=== PATIENT | female | born 1970 | race Caucasian/White ===

== ENCOUNTER 2017-05-29 11:19 | Emergency (ER) | payer MEDICAID ==
[~2017-05-29] VITALS: Ht 5703.2 cm; Wt 123.1 kg
[~2017-05-29 11:19] MED LIST: BISA10SU60 RC; DOCU-28 PO; IBUP-1985 PO; MAGN296S50 PO; NITR100C6 PO
[2017-05-29 11:21] VITALS: BP 128/87
[2017-05-29 11:44] LABS: CLARITY,URINE CLOUDY (Clear); COLOR,URINE YELLOW (Yellow); GLUCOSE, URINE >=1000 mg/dl (Neg); KETONES,URINE NEGATIVE (Neg); LEUKOCYTE ESTERASE ,URINE TRACE (Neg); NITRITES, URINE POSITIVE (Neg); OCCULT BLOOD,URINE TRACE-INTACT (Neg); PH,URINE 5.5 (4.8-8.0); PROTEIN,URINE NEGATIVE (Neg)
[2017-05-29 11:45] LABS: UA COLLECTION TYPE CLN CATCH MIDSTREAM
[2017-05-29 11:51] LABS: BACTERIA,URINE 2+ /HPF (Neg); SQUAMOUS EPITHELIAL CELL,UR MODERATE /LPF (FEW)
[2017-05-29 11:52] LABS: RBC,URINE 0-2 /HPF (0-2); WBC CLUMPS,URINE MODERATE /HPF (NEGATIVE)
[2017-05-29] MEDS ORDERED: BACDS PO (12:01)
== END 2017-05-29 12:10 | disposition home or self-care (01) ==
LOC: ER 11:19
DX: N39.0 Urinary tract infection, site not specified (principal); G89.29 Other chronic pain; F11.10 Opioid abuse, uncomplicated; Z79.899 Other long term (current) drug therapy
CPT/HCPCS: 81001; 87077; 87088; 87186; 99284

== ENCOUNTER 2017-07-18 09:39 | Outpatient (CLI) | payer MEDICAID ==
[2017-07-18] MEDS ORDERED: BUSP10TA3 (10:05)
[2017-07-18] MEDS ORDERED: AMPH30CA10 (10:05)
[2017-07-18] MEDS ORDERED: TEMA15CA (10:05)
[2017-07-18] MEDS ORDERED: LEVO200T8 (10:05)
[2017-07-18] MEDS ORDERED: HYDR50CA5 (10:05)
[2017-07-18] MEDS ORDERED: DOXE150C (10:05)
[2017-07-18 11:04] LABS: BASOPHILS % (AUTO) 0.5 % (0-1); EOSINOPHILS # (AUTO) 0.2 X10'3 (0-0.9); EOSINOPHILS % (AUTO) 2.8 % (0-6); LYMPHOCYTES # (AUTO) 1.7 X10'3 (1.1-4.8); LYMPHOCYTES % (AUTO) 24.8 % (21-51); MEAN CORPUSCULAR HEMOGLOBIN 27.1 PG (27.0-31.0); MEAN CORPUSCULAR HGB CONC 33.7 % (33.0-36.5); MEAN CORPUSCULAR VOLUME 80.4 FL (78-98); MEAN PLATELET VOLUME 10.1 FL (7.4-10.4); MONOCYTES # (AUTO) 0.5 X10'3 (0-0.9); MONOCYTES % (AUTO) 6.6 % (2-12); NEUTROPHILS # (AUTO) 4.6 X10'3 (1.8-7.7); NEUTROPHILS % (AUTO) 65.3 % (42-75); PRE OP HEMATOCRIT 38.8 % (35.0-45.0); PRE OP HEMOGLOBIN 13.1 g/dL (12.0-16.0); PRE OP PLATELET COUNT 152 X10'3 (140-440); RED BLOOD COUNT 4.82 X10'6 (4.20-5.60); RED CELL DISTRIBUTION WIDTH 14.4 % (11.5-14.5)
[2017-07-18 11:12] LABS: HEMOGLOBIN A1C 10.6 % (4.5-6.2)
[2017-07-18 11:41] LABS: ALBUMIN 3.1 G/DL (3.4-5.0); ALBUMIN/GLOBULIN RATIO 0.6 (1.1-1.5); ALKALINE PHOSPHATASE 214 IU/L (46-116); BLOOD UREA NITROGEN 12 MG/DL (7-18); CALCIUM 9.1 MG/DL (8.5-10.1); CHLORIDE 94 MMOL/L (99-107); CREATININE 1.09 MG/DL (0.40-0.90); PRE OP ALT 58 U/L (30-65); PRE OP ANION GAP 11 (8-16); PRE OP AST 57 U/L (10-37); PRE OP BILIRUB, TOTAL 0.3 MG/DL (0.0-1.0); PRE OP POTASSIUM 3.7 MMOL/L (3.4-5.1); PRE OP SODIUM 131 MMOL/L (135-145); TOTAL CARBON DIOXIDE 26.4 MMOL/L (24-32); TOTAL PROTEIN 8.1 G/DL (6.4-8.2); eGFR 54 ML/MIN
[2017-07-18 11:42] LABS: PRE OP GLUCOSE 354 MG/DL (70-104)
== END 2017-07-18 13:08 | disposition home or self-care (01) ==
LOC: PRE-OP 09:39 → EDSTATUS 07-19 09:45
PROVIDERS: ATTEND Orthopaedic Surgery
DX: Z01.818 Encounter for other preprocedural examination (principal); I51.7 Cardiomegaly; S83.231D Complex tear of medial meniscus, current injury, right knee, subsequent encounter; S83.271D Complex tear of lateral meniscus, current injury, right knee, subsequent encounter; F41.9 Anxiety disorder, unspecified; E03.9 Hypothyroidism, unspecified; E66.01 Morbid (severe) obesity due to excess calories; J44.9 Chronic obstructive pulmonary disease, unspecified; M54.5 Low back pain; M17.12 Unilateral primary osteoarthritis, left knee; G89.4 Chronic pain syndrome; F17.209 Nicotine dependence, unspecified, with unspecified nicotine-induced disorders; X58.XXXD Exposure to other specified factors, subsequent encounter
CPT/HCPCS: 36415; 80053; 83036; 84443; 85025; 93005

== ENCOUNTER 2017-09-13 23:40 | Emergency (ER) | payer MEDICAID ==
[~2017-09-13] VITALS: Ht 172.7 cm; Wt 116.8 kg
[~2017-09-13 23:40] MED LIST changes: +AMPH30CA10; +BUSP10TA3; +DOXE150C; +HYDR50CA5; +LEVO200T8; +TEMA15CA
[2017-09-13 23:44] VITALS: BP 131/68
== END 2017-09-14 01:11 | disposition home or self-care (01) ==
LOC: ER 23:41
DX: S39.012A Strain of muscle, fascia and tendon of lower back, initial encounter (principal); G89.29 Other chronic pain; F11.90 Opioid use, unspecified, uncomplicated; Z79.899 Other long term (current) drug therapy; W01.0XXA Fall on same level from slipping, tripping and stumbling without subsequent striking against object, initial encounter; Y93.89 Activity, other specified; Y92.000 Kitchen of unspecified non-institutional (private) residence as the place of occurrence of the external cause; Y99.8 Other external cause status
CPT/HCPCS: 99284

== ENCOUNTER 2017-12-04 08:26 | Emergency (ER) | payer MEDICAID ==
[~2017-12-04] VITALS: Ht 172.7 cm; Wt 109.1 kg
[2017-12-04] MEDS ORDERED: LORazepam 1 MG tablet PO ONE (08:35)
[2017-12-04] MEDS ORDERED: DOXE150C2 PO (09:21)
[2017-12-04] MEDS ORDERED: DOCU100C41 PO (09:21)
[2017-12-04] MEDS ORDERED: AMPH30TA3 PO (09:21)
[2017-12-04] MEDS ORDERED: METH5TAB PO (09:25)
[2017-12-04] MEDS ORDERED: METH-603 PO (09:25)
[2017-12-04] MEDS ORDERED: LURA40TA3 PO (09:27)
[2017-12-04] MEDS ORDERED: METF500T PO (09:27)
[2017-12-04 09:29] LABS: BASOPHILS % (AUTO) 0.4 % (0-1); EOSINOPHILS # (AUTO) 0.1 X10'3 (0-0.9); EOSINOPHILS % (AUTO) 1.8 % (0-6); HEMATOCRIT 42.2 % (35.0-45.0); HEMOGLOBIN 13.6 g/dl (12.0-16.0); LYMPHOCYTES % (AUTO) 13.2 % (21-51); MEAN CORPUSCULAR HEMOGLOBIN 26.6 PG (27.0-31.0); MEAN CORPUSCULAR HGB CONC 32.2 % (33.0-36.5); MEAN CORPUSCULAR VOLUME 82.4 FL (78-98); MEAN PLATELET VOLUME 10.9 FL (7.4-10.4); MONOCYTES # (AUTO) 0.3 X10'3 (0-0.9); MONOCYTES % (AUTO) 4.7 % (2-12); NEUTROPHILS # (AUTO) 5.9 X10'3 (1.8-7.7); NEUTROPHILS % (AUTO) 79.9 % (42-75); PLATELET COUNT 213 X10'3 (140-440); RED BLOOD COUNT 5.13 X10'6 (4.20-5.60); RED CELL DISTRIBUTION WIDTH 15.6 % (11.5-14.5); WHITE BLOOD COUNT 7.4 X10'3 (4.5-11.0)
[2017-12-04 09:33] LABS: ALANINE AMINOTRANSFERASE 39 U/L (12-78); ALBUMIN 3.4 G/DL (3.4-5.0); ALBUMIN/GLOBULIN RATIO 0.7 (1.1-1.5); ALKALINE PHOSPHATASE 186 IU/L (46-116); ANION GAP 10 (8-16); ASPARTATE AMINO TRANSFERASE 36 U/L (10-37); BILIRUBIN,TOTAL 0.4 MG/DL (0.1-1.0); BLOOD UREA NITROGEN 8 MG/DL (7-18); CALCIUM 8.7 MG/DL (8.5-10.1); CHLORIDE 99 MMOL/L (99-107); GLUCOSE 306 MG/DL (70-104); POTASSIUM 3.9 MMOL/L (3.5-5.1); SODIUM 136 MMOL/L (135-145); TOTAL CARBON DIOXIDE 26.7 MMOL/L (24-32); TOTAL PROTEIN 8.1 G/DL (6.4-8.2); eGFR 60 ML/MIN
[2017-12-04 09:40] LABS: ETHANOL < 0.010 GM/DL (0.0-0.010)
[2017-12-04 10:03] LABS: URINE HCG NEGATIVE (NEG)
[2017-12-04 10:07] LABS: CLARITY,URINE SLIGHTLY CLOUDY (Clear); COLOR,URINE YELLOW (Yellow); GLUCOSE, URINE >=1000 mg/dl (Neg); KETONES,URINE NEGATIVE (Neg); LEUKOCYTE ESTERASE ,URINE SMALL (Neg); NITRITES, URINE POSITIVE (Neg); OCCULT BLOOD,URINE NEGATIVE (Neg); PH,URINE 5.5 (4.8-8.0); PROTEIN,URINE NEGATIVE (Neg)
[2017-12-04 10:10] LABS: UA COLLECTION TYPE NON-SPECIFIED
[2017-12-04 10:16] LABS: BACTERIA,URINE 4+ /HPF (Neg); RBC,URINE NONE SEEN /HPF (0-2); SQUAMOUS EPITHELIAL CELL,UR FEW /LPF (FEW); URINE AMPHETAMINE SCREEN NEGATIVE (Neg); URINE BARBITUATE SCREEN NEGATIVE (Neg); URINE BENZODIAZEPINES SCREEN NEGATIVE (Neg); URINE CANNABINOID SCREEN NEGATIVE (Neg); URINE COCAINE SCREEN NEGATIVE (Neg); URINE METHADONE SCREEN POSITIVE (Neg); URINE OPIATE SCREEN NEGATIVE (Neg); URINE PHENCYCLIDINE SCREEN NEGATIVE (Neg); WBC CLUMPS,URINE FEW /HPF (NEGATIVE); WBC,URINE 20-30 /HPF (0-4)
[2017-12-04] MEDS ORDERED: dextrose ORAL solution 15 GM/59 ML bottle PO PRN (10:30)
[2017-12-04] MEDS ORDERED: glucagon, human recombinant 1mg kit SUBCUT PRN (10:30)
[2017-12-04] MEDS: DEXTROAMPHETAMINE PO SCH (11:00)
[2017-12-04] MEDS: AMPHETAMINE PO SCH (11:00)
[2017-12-04] MEDS: lurasidone 20mg tablet PO SCH (11:30)
[2017-12-04] MEDS: methadone 5mg tablet PO SCH (11:32)
[2017-12-04] MEDS: methadone 10mg tablet PO SCH (11:32)
[2017-12-04] MEDS: docusate sod 100mg capsule PO SCH (11:33)
[2017-12-04] MEDS: sulfamethoxazole/trimethoprim DS (800/160mg) tablet PO SCH ×2 (11:33→20:18)
[2017-12-04] MEDS: metFORMIN 500mg tablet PO SCH ×2 (11:33→17:40)
[2017-12-04] MEDS: doxepin 25mg capsule PO SCH (21:48)
[2017-12-05] MEDS: metFORMIN 500mg tablet PO SCH ×2 (07:48→18:13)
[2017-12-05] MEDS: AMPHETAMINE PO SCH (08:00)
[2017-12-05] MEDS: DEXTROAMPHETAMINE PO SCH (08:00)
[2017-12-05] MEDS: methadone 5mg tablet PO SCH (08:14)
[2017-12-05] MEDS: lurasidone 20mg tablet PO SCH (08:14)
[2017-12-05] MEDS: methadone 10mg tablet PO SCH (08:15)
[2017-12-05] MEDS: sulfamethoxazole/trimethoprim DS (800/160mg) tablet PO SCH ×2 (08:15→21:05)
[2017-12-05] MEDS: docusate sod 100mg capsule PO SCH (08:15)
[2017-12-05] MEDS: lactobacillus rhamnosus 10,000 MMU CELLS/CAPSULE PO SCH (21:05)
[2017-12-05] MEDS: doxepin 25mg capsule PO SCH (21:05)
[2017-12-06 05:57] VITALS: BP 113/75
[2017-12-06] MEDS: AMPHETAMINE PO SCH (08:00)
[2017-12-06] MEDS: DEXTROAMPHETAMINE PO SCH (08:00)
[2017-12-06] MEDS: methadone 5mg tablet PO SCH (08:13)
[2017-12-06] MEDS: methadone 10mg tablet PO SCH (08:13)
[2017-12-06] MEDS: sulfamethoxazole/trimethoprim DS (800/160mg) tablet PO SCH (08:14)
[2017-12-06] MEDS: docusate sod 100mg capsule PO SCH (08:14)
[2017-12-06] MEDS: lurasidone 20mg tablet PO SCH (08:14)
[2017-12-06] MEDS: lactobacillus rhamnosus 10,000 MMU CELLS/CAPSULE PO SCH (08:14)
[2017-12-06] MEDS: metFORMIN 500mg tablet PO SCH (08:14)
[2017-12-06] MEDS ORDERED: NITR100C6 PO (13:59)
== END 2017-12-06 14:16 ==
LOC: ER 08:26
DX: R45.851 Suicidal ideations (principal); F32.9 Major depressive disorder, single episode, unspecified; N39.0 Urinary tract infection, site not specified; E11.9 Type 2 diabetes mellitus without complications; G89.29 Other chronic pain; F41.9 Anxiety disorder, unspecified; Z98.84 Bariatric surgery status; Z79.899 Other long term (current) drug therapy
CPT/HCPCS: 36415; 80053; 80305; 80320; 81001; 81025; 82948; 84443; 85025; 99285

== ENCOUNTER 2018-01-11 16:32 | Emergency (ER) | payer MEDICAID ==
[~2018-01-11] VITALS: Ht 170.2 cm; Wt 109.0 kg
[~2018-01-11 16:32] MED LIST changes: -AMPH30CA10; +ARIP30TA11; +BACDS PO; -BISA10SU60 RC; +BUPR100T7 PO; -BUSP10TA3; +CLON0.1T20 PO; -DOCU-28 PO; +DOCU100C41 PO; +DOL10T PO; -DOXE150C; +DOXE150C2 PO; -HYDR50CA5; -IBUP-1985 PO; -LEVO200T8; -MAGN296S50 PO; +METF500T PO; -NITR100C6 PO; -TEMA15CA
[2018-01-11 17:06] VITALS: BP 122/65
[2018-01-11] MEDS ORDERED: fluconazole 150mg tablet PO ONE (20:20)
[2018-01-11] MEDS ORDERED: CLOT15CR73 TP (20:25)
[2018-01-12] MEDS ORDERED: CLOT15CR73 TOP (12:36)
== END 2018-01-11 20:51 | disposition home or self-care (01) ==
LOC: ER 16:33
DX: B37.3 Candidiasis of vulva and vagina (principal); G89.29 Other chronic pain; F41.9 Anxiety disorder, unspecified; F32.9 Major depressive disorder, single episode, unspecified; F17.200 Nicotine dependence, unspecified, uncomplicated; F11.10 Opioid abuse, uncomplicated; Z59.0 Homelessness; Z86.14 Personal history of Methicillin resistant Staphylococcus aureus infection; Z98.84 Bariatric surgery status
CPT/HCPCS: 99283

== ENCOUNTER 2018-01-14 07:05 | Emergency (ER) | payer MEDICAID ==
[~2018-01-14] VITALS: Ht 170.2 cm; Wt 109.0 kg
[~2018-01-14 07:05] MED LIST changes: +CLOT15CR73 TOP; +CLOT15CR73 TP
[2018-01-14 07:09] VITALS: BP 161/94
== END 2018-01-14 09:10 | disposition home or self-care (01) ==
LOC: ER 07:06
DX: B37.89 Other sites of candidiasis (principal); G89.29 Other chronic pain; Z86.14 Personal history of Methicillin resistant Staphylococcus aureus infection; F11.90 Opioid use, unspecified, uncomplicated; Z98.51 Tubal ligation status; Z79.84 Long term (current) use of oral hypoglycemic drugs; Z79.899 Other long term (current) drug therapy; Z59.0 Homelessness
CPT/HCPCS: 99281

== ENCOUNTER 2018-02-22 09:28 | Emergency (ER) | payer MEDICAID ==
[~2018-02-22] VITALS: Ht 172.7 cm; Wt 106.0 kg
[2018-02-22 09:43] VITALS: BP 120/58
[2018-02-22] MEDS ORDERED: acetaminophen 325mg tablet PO ONE (10:30)
[2018-02-22] MEDS ORDERED: AZIT500T PO (10:48)
== END 2018-02-22 10:59 | disposition home or self-care (01) ==
LOC: ER 09:28
DX: J20.9 Acute bronchitis, unspecified (principal); G89.29 Other chronic pain; F41.9 Anxiety disorder, unspecified; F32.9 Major depressive disorder, single episode, unspecified; R51 Headache; F11.10 Opioid abuse, uncomplicated; Z59.0 Homelessness; Z72.0 Tobacco use; Z98.51 Tubal ligation status; Z86.14 Personal history of Methicillin resistant Staphylococcus aureus infection; Z87.898 Personal history of other specified conditions; Z79.899 Other long term (current) drug therapy
CPT/HCPCS: 71046; 99283

== ENCOUNTER 2018-05-23 01:36 | Emergency (ER) | payer MEDICAID ==
[~2018-05-23] VITALS: Ht 172.7 cm; Wt 72.5 kg
[2018-05-23 01:44] VITALS: BP 133/80
[2018-05-23] MEDS ORDERED: ketorolac trometh inj. 60 MG/2 ML VIAL IM ONE (03:25)
[2018-05-23] MEDS ORDERED: acetaminophen 325mg tablet PO ONE (03:25)
== END 2018-05-23 04:09 | disposition home or self-care (01) ==
LOC: ER 01:36
DX: R07.81 Pleurodynia (principal); G89.29 Other chronic pain; F11.90 Opioid use, unspecified, uncomplicated; Z59.0 Homelessness; Z86.14 Personal history of Methicillin resistant Staphylococcus aureus infection; Z98.51 Tubal ligation status; Z98.890 Other specified postprocedural states; Z79.899 Other long term (current) drug therapy; Y04.0XXA Assault by unarmed brawl or fight, initial encounter; Y93.89 Activity, other specified; Y92.89 Other specified places as the place of occurrence of the external cause; Y99.8 Other external cause status
CPT/HCPCS: 71045; 96372; 99283; J1885

== ENCOUNTER 2018-07-05 12:01 | Emergency (ER) | payer MEDICAID ==
[~2018-07-05] VITALS: Ht 172.7 cm; Wt 72.0 kg
--- NOTE | 2018-07-05 13:04 | NUR ---
PT UNABLE TO VOID FOR UA AT THIS TIME.
[2018-07-05 13:10] LABS: BASOPHILS % (AUTO) 0.3 % (0-1); EOSINOPHILS % (AUTO) 0.1 % (0-6); HEMATOCRIT 33.3 % (35.0-45.0); HEMOGLOBIN 10.8 g/dl (12.0-16.0); LYMPHOCYTES # (AUTO) 1.1 X10'3 (1.1-4.8); MEAN CORPUSCULAR HEMOGLOBIN 22.9 PG (27.0-31.0); MEAN CORPUSCULAR HGB CONC 32.4 g/dL (33.0-36.5); MEAN CORPUSCULAR VOLUME 70.6 FL (78-98); MEAN PLATELET VOLUME 9.4 FL (7.4-10.4); MONOCYTES # (AUTO) 0.5 X10'3 (0-0.9); NEUTROPHILS # (AUTO) 7.1 X10'3 (1.8-7.7); NEUTROPHILS % (AUTO) 80.6 % (42-75); PLATELET COUNT 195 X10'3 (140-440); RED BLOOD COUNT 4.71 X10'6 (4.20-5.60); RED CELL DISTRIBUTION WIDTH 18.5 % (11.5-14.5); WHITE BLOOD COUNT 8.8 X10'3 (4.5-11.0)
[2018-07-05 13:28] LABS: ALANINE AMINOTRANSFERASE 69 U/L (12-78); ALBUMIN 3.2 G/DL (3.4-5.0); ALBUMIN/GLOBULIN RATIO 0.6 (1.1-1.5); ALKALINE PHOSPHATASE 185 IU/L (46-116); ANION GAP 6 (8-16); ASPARTATE AMINO TRANSFERASE 42 U/L (10-37); BILIRUBIN,TOTAL 0.5 MG/DL (0.1-1.0); BLOOD UREA NITROGEN 10 MG/DL (7-18); CALCIUM 8.5 MG/DL (8.5-10.1); CHLORIDE 101 MMOL/L (99-107); CREATININE 0.83 MG/DL (0.40-0.90); GLUCOSE 232 MG/DL (70-104); SODIUM 134 MMOL/L (135-145); TOTAL CARBON DIOXIDE 27.5 MMOL/L (24-32); TOTAL PROTEIN 8.2 G/DL (6.4-8.2); eGFR 74 ML/MIN
[2018-07-05] MEDS ORDERED: potassium chloride 10mEq CAPSULE.SA PO STA (13:35)
[2018-07-05] MEDS ORDERED: potassium Cl 20 mEq SR tablet PO STA (13:48)
[2018-07-05] MEDS ORDERED: CLON-529 PO (14:24)
[2018-07-05 14:38] VITALS: BP 167/88
== END 2018-07-05 14:41 | disposition home or self-care (01) ==
LOC: ER 12:01
DX: F11.20 Opioid dependence, uncomplicated (principal); R07.89 Other chest pain; G89.29 Other chronic pain; Z86.14 Personal history of Methicillin resistant Staphylococcus aureus infection; Z79.84 Long term (current) use of oral hypoglycemic drugs; Z79.899 Other long term (current) drug therapy; Z98.51 Tubal ligation status; Z59.0 Homelessness
CPT/HCPCS: 36415; 80053; 85025; 93005; 99284

== ENCOUNTER 2018-07-06 11:28 | Emergency (ER) | payer MEDICAID ==
[~2018-07-06] VITALS: Ht 172.7 cm; Wt 85.0 kg
[~2018-07-06 11:28] MED LIST changes: +CLON-529 PO
--- NOTE | 2018-07-06 11:49 | NUR ---
Admission Note: Received pt as a walk back from triage as a 1798 after she was brought in for attempting to jump off the [place] [address]. Pt continues to endorse S.I., "I don't want to live like this anymore" Pt has a history of bipolar disorder and reports she has been off her meds for 4-7 days. Pt cooperative with admission.
[2018-07-06 12:32] LABS: URINE HCG NEGATIVE (NEG)
[2018-07-06 12:43] LABS: URINE AMPHETAMINE SCREEN POSITIVE (Neg); URINE BARBITUATE SCREEN NEGATIVE (Neg); URINE BENZODIAZEPINES SCREEN NEGATIVE (Neg); URINE CANNABINOID SCREEN POSITIVE (Neg); URINE COCAINE SCREEN NEGATIVE (Neg); URINE METHADONE SCREEN POSITIVE (Neg); URINE OPIATE SCREEN NEGATIVE (Neg); URINE PHENCYCLIDINE SCREEN NEGATIVE (Neg)
[2018-07-06 13:06] LABS: BASOPHILS % (AUTO) 0.3 % (0-1); EOSINOPHILS % (AUTO) 0 % (0-6); HEMATOCRIT 34.2 % (35.0-45.0); HEMOGLOBIN 10.9 g/dl (12.0-16.0); LYMPHOCYTES # (AUTO) 1.2 X10'3 (1.1-4.8); MEAN CORPUSCULAR HEMOGLOBIN 22.3 PG (27.0-31.0); MEAN CORPUSCULAR HGB CONC 31.9 g/dL (33.0-36.5); MEAN CORPUSCULAR VOLUME 69.9 FL (78-98); MEAN PLATELET VOLUME 10.4 FL (7.4-10.4); MONOCYTES # (AUTO) 0.5 X10'3 (0-0.9); MONOCYTES % (AUTO) 4.6 % (2-12); NEUTROPHILS # (AUTO) 9.4 X10'3 (1.8-7.7); NEUTROPHILS % (AUTO) 84.1 % (42-75); PLATELET COUNT 215 X10'3 (140-440); RED CELL DISTRIBUTION WIDTH 19.2 % (11.5-14.5); WHITE BLOOD COUNT 11.1 X10'3 (4.5-11.0)
[2018-07-06 13:12] LABS: ALANINE AMINOTRANSFERASE 58 U/L (12-78); ALBUMIN 3.3 G/DL (3.4-5.0); ALBUMIN/GLOBULIN RATIO 0.6 (1.1-1.5); ALKALINE PHOSPHATASE 177 IU/L (46-116); ANION GAP 7 (8-16); ASPARTATE AMINO TRANSFERASE 29 U/L (10-37); BILIRUBIN,TOTAL 0.6 MG/DL (0.1-1.0); BLOOD UREA NITROGEN 11 MG/DL (7-18); BUN/CREATININE RATIO 11.7 (6.6-38.0); CALCIUM 9.6 MG/DL (8.5-10.1); CHLORIDE 98 MMOL/L (99-107); CREATININE 0.94 MG/DL (0.40-0.90); ETHANOL < 0.010 GM/DL (0.0-0.010); GLUCOSE 310 MG/DL (70-104); POTASSIUM 3.8 MMOL/L (3.5-5.1); SODIUM 134 MMOL/L (135-145); TOTAL CARBON DIOXIDE 28.6 MMOL/L (24-32); TOTAL PROTEIN 8.7 G/DL (6.4-8.2); eGFR 64 ML/MIN
--- NOTE | 2018-07-06 13:23 | NUR ---
Note undone in EDM - 07/06/18 at 1326 by CALLI Pt discharged at 1323 to self. Pt evaluated by psychiatric provider, Estuardo RASHID who determined pt not to be meeting 5150 criteria. Pt denies S.I. and voices desire to go home. Pt escorted from unit by security.
--- NOTE | 2018-07-06 13:30 | NUR ---
Packet faxed to [facility] tad office
[2018-07-06 13:47] LABS: ANISOCYTOSIS 2+; ELLIPTOCYTES FEW; HYPOCHROMASIA 1+; LARGE PLATELETS FEW; MICROCYTOSIS 2+; PLATELET ESTIMATE NORMAL; SCHISTOCYTES FEW
--- NOTE | 2018-07-06 13:48 | NUR ---
Pt resting quietly in bed, no signs of distress noted at this time. Will cont. to monitor.
--- NOTE | 2018-07-06 15:00 | NUR ---
Pt did awake at one point stating she was having a panic attack. RN went and spoke with her for awhile and then gave her a magazine. No further complaints.
--- NOTE | 2018-07-06 17:00 | NUR ---
Pt restless, tossing and turning in bed c/o anxiety. Pt responds moderately well to reassurrance by staff.
[2018-07-06] MEDS ORDERED: buPROPion 100mg tablet PO SCH (18:00)
[2018-07-06] MEDS ORDERED: hydrOXYzine 25 MG tablet PO PRN (18:05)
--- NOTE | 2018-07-06 19:00 | NUR ---
Pt resting quietly in bed. No complaints at this time.
[2018-07-06] MEDS: cloNIDine 0.1 mg tablet PO SCH (20:24)
[2018-07-06] MEDS ORDERED: aripiprazole 5mg tablet PO SCH (21:00)
[2018-07-06] MEDS ORDERED: doxepin 25mg capsule PO SCH (21:00)
--- NOTE | 2018-07-06 21:00 | NUR ---
Pt sleeping and was awoken to give HS meds. Pt compliant without complaints.
[2018-07-06] MEDS ORDERED: ibuprofen 200mg tablet PO PRN (21:55)
[2018-07-06] MEDS ORDERED: LORazepam 1 MG tablet PO ONE (21:55)
[2018-07-06] MEDS: acetaminophen 325mg tablet PO PRN (22:03)
--- NOTE | 2018-07-06 23:00 | NUR ---
Pt has been restless since pt awoke to take HS medications. Pt c/o pain. PA ordered tylenol and ativan which was given.
--- NOTE | 2018-07-07 01:00 | NUR ---
Pt restless, up and down. Pt currently seems to have settled and is resting calmly with eyes closed and breathing regular without distress.
--- NOTE | 2018-07-07 03:00 | NUR ---
Pt continues to sleep without distress.
--- NOTE | 2018-07-07 05:00 | NUR ---
Pt remains sleeping peacefully without complaints.
[2018-07-07 06:00] VITALS: BP 145/88
[2018-07-07] MEDS ORDERED: buPROPion SR 150mg tablet PO SCH (08:00)
[2018-07-07] MEDS ORDERED: METF500T PO (08:18)
[2018-07-07] MEDS: cloNIDine 0.1 mg tablet PO SCH (08:35)
[2018-07-07] MEDS: acetaminophen 325mg tablet PO PRN (08:37)
[2018-07-07] MEDS ORDERED: metFORMIN 500mg tablet PO SCH ×2 (08:38→20:00)
--- NOTE | 2018-07-07 09:00 | NUR ---
called [facility] and asked them to fax over the information for the pt's methadone doses.
[2018-07-07] MEDS ORDERED: METH-603 PO (11:12)
--- NOTE | 2018-07-07 12:21 | NUR ---
notified Rojelio TORRES that pt going up to behavioral health and needs d/c paperwork.
--- NOTE | 2018-07-07 12:22 | NUR ---
Gave Report to [facility].
[2018-07-07] MEDS ORDERED: DOXE150C PO (13:07)
[2018-07-07] MEDS ORDERED: ARIP30TA7 PO (13:07)
[2018-07-07] MEDS ORDERED: BUPR150T8 PO (13:07)
[2018-07-07] MEDS ORDERED: CLON-529 PO (13:07)
--- NOTE | 2018-07-07 13:12 | NUR ---
[facility] at bedside.
[2018-07-08] MEDS ORDERED: methadone 10mg tablet PO SCH (08:00)
== END 2018-07-07 13:23 ==
LOC: ER 11:28
DX: F32.9 Major depressive disorder, single episode, unspecified (principal); F41.9 Anxiety disorder, unspecified; G89.29 Other chronic pain; Z86.19 Personal history of other infectious and parasitic diseases; F17.200 Nicotine dependence, unspecified, uncomplicated; F11.90 Opioid use, unspecified, uncomplicated; Z98.51 Tubal ligation status; Z98.84 Bariatric surgery status; Z59.0 Homelessness; Z79.84 Long term (current) use of oral hypoglycemic drugs; Z79.899 Other long term (current) drug therapy
CPT/HCPCS: 36415; 80053; 80305; 80320; 81025; 82948; 85025; 99285; Q0177

== ENCOUNTER 2018-07-07 12:11 | Inpatient (IN) | payer MEDICAID ==
[~2018-07-07] VITALS: Ht 172.7 cm; Wt 85.9 kg
[~2018-07-07 12:11] MED LIST changes: +METH-603 PO
[2018-07-07] MEDS ORDERED: mag hydrox/Alum hydrox/simeth 30ml oral suspension PO PRN (13:00)
[2018-07-07] MEDS ORDERED: magnesium hydroxide 30ml (MOM) UD suspension PO PRN (13:00)
[2018-07-07] MEDS ORDERED: tuberculin, purif. prot. deriv. 5 units/0.1ml ID ONE (13:00)
[2018-07-07] MEDS ORDERED: acetaminophen 325mg tablet PO PRN ×2 (13:00)
[2018-07-07] MEDS ORDERED: loperamide 2mg capsule PO PRN (13:00)
[2018-07-07] MEDS ORDERED: BUPR150T8 PO (13:07)
[2018-07-07] MEDS ORDERED: ARIP30TA7 PO (13:07)
[2018-07-07] MEDS ORDERED: DOXE150C PO (13:07)
[2018-07-07] MEDS ORDERED: CLON-529 PO (13:07)
[2018-07-07 13:54] VITALS: BP 111/59
--- NOTE | 2018-07-07 13:58 | NUR ---
Admit note: Pt admitted by RACHID Allen for Dr Delgado at 1330 for depression. Pt on a 5150 for suicidal ideation. Pt reports increasing depression and states "I have nothing to live for". Pt had plan to jump off the [place] bridge. Pt has history DMII, overdoses, bipolar, anxiety, schizophrenia. Pt cooperative with admission process. Med rec completed. Pt may have stopped taking her medications a week ago. Pt complains of a lot of family drama at home.
[2018-07-07] MEDS ORDERED: methadone 10mg tablet PO SCH (14:50)
[2018-07-07] MEDS: methadone 10mg tablet PO SCH (15:22)
[2018-07-07] MEDS: methadone 5mg tablet PO SCH (15:23)
--- NOTE | 2018-07-07 17:08 | NUR ---
Nursing Progress Note Legal hold: 5150 Client on involuntary status for DTS. Report received from TAMAR Deng with use of SBAR. Why are they here: Patient has come into the ER everyday for the past three days. States she had a plan to jump off [address] bridge 08/06. Patient now reports that she feels suicidal, but has no plan. Patient has been off her medications for approximately 5 days now. Patient's tox screen was positive for amphetamines (which patient states that she takes Adderall and this tests positive), methadone, THC. Patient has past history of substance abuse. Pt. is homeless. Patient has chronic pain, DM, gastric bypass. Hep C, hx of MRSA. Assessment What has happened this shift: Patient came to floor and immediately started requesting methadone, that was not administered in ER. Told TAMAR Fox that she is going to stay here until she is ready to leave. Has been living under [facility]. Skin check complete and has no skin abnormalities. Left lower lung is decreased, otherwise clear. Patient showered after assessments complete. S/I, H/I: Patient states SI with no plan. A/VH: Denies. Sleep:Awake this afternoon. ADL's: Independent. Group attendance: Admitted after groups. Were meds taken: Yes. Any med S/E: None. Mental Status Exam Appearance: Disheveled woman with mid length hair. Eye contact: Minimal. Behavior: Med seeking (withdrawing from methadone), tired. Speech: Slightly slurred, due to patient being edentulous. Mood: Depressed. Affect: Blunted, slightly agitated. Thought process: Linear. Thought Content: Getting methadone. Cognition: A&O x 4 Insight: Poor. Judgment: Poor. Interventions PRN's used: None. Therapeutic interventions: Assessments to determine severity of symptoms, therapeutic listening, medication education/administration/monitoring. Q15" safety checks. Restraints/seclusion/emergency medication: None. Justification of Continued Inpatient Treatment: Patient is suicidal and needs medication stabilization and to be in a safe and therapeutic environment to reduce risk to patient and rehospitalization.
[2018-07-07 20:00] VITALS: BP 109/70
[2018-07-07] MEDS: cloNIDine 0.1 mg tablet PO SCH (20:00)
[2018-07-07] MEDS: metFORMIN 500mg tablet PO SCH (21:12)
[2018-07-07] MEDS: aripiprazole 5mg tablet PO SCH (21:32)
[2018-07-07] MEDS: doxepin 25mg capsule PO SCH (21:34)
--- NOTE | 2018-07-08 00:31 | NUR ---
Nursing Progress Note Legal hold: 5150 Client on involuntary status for DTS. Report received from TAMAR Deng with use of SBAR. Why are they here: Patient has come into the ER everyday for the past three days. States she had a plan to jump off [employer] bridge 08/06. Patient now reports that she feels suicidal, but has no plan. Patient has been off her medications for approximately 5 days now. Patient's tox screen was positive for amphetamines (which patient states that she takes Adderall and this tests positive), methadone, THC. Patient has past history of substance abuse. Pt. is homeless. Patient has chronic pain, DM, gastric bypass. Hep C, hx of MRSA. Assessment What has happened this shift: Pt sleeping in bed at change of shift. Pt attended HS snack. She is observed to nod off frequently; pt states it is because of the methadone. She confirms SI but has no plan "I wouldn't know how to kill myself here". Pt states that she feels "powerless, worthless" and that she wants to get her kids help and herself help with assistance while she is here. Presents as depressed. Pt falls asleep frequently during 1:1. Pt is medication compliant and cooperative. S/I, H/I: +SI with no plan, Denies HI A/VH: Denies Sleep: See Sleep Hour Charting ADL's: Independent Group attendance: Y - HS Snack Were meds taken: Y - Catapres held due to not meeting BP parameters. Any med S/E: None reported, Methadone dose may need adjustment due to sleepiness Mental Status Exam Appearance: Disheveled hair, wearing unit green scrubs, nonskid socks, and personal sweatshirt Eye contact: Intermittent Behavior: Sleeping, Attended snack Speech: Slightly Slurred, Low volume Mood: Depressed Affect: Blunted Thought process: Linear Thought Content: Getting help while here Cognition: A&Ox4 Insight: Poor to Fair Judgment: Poor Interventions PRN's used: None Therapeutic interventions: Assessments to determine severity of symptoms, therapeutic listening, medication education/administration/monitoring. Q15" safety checks. Restraints/seclusion/emergency medication: None. Justification of Continued Inpatient Treatment: Patient is suicidal and needs medication stabilization and to be in a safe and therapeutic environment to reduce risk to patient and rehospitalization.
[2018-07-08 07:00] VITALS: BP 103/60
[2018-07-08] MEDS ORDERED: methadone 10mg tablet PO SCH (08:00)
[2018-07-08] MEDS: buPROPion SR 150mg tablet PO SCH (08:55)
[2018-07-08] MEDS: metFORMIN 500mg tablet PO SCH ×2 (08:55→20:29)
[2018-07-08] MEDS: methadone 5mg tablet PO SCH (08:55)
[2018-07-08] MEDS: cloNIDine 0.1 mg tablet PO SCH ×2 (08:55→20:00)
[2018-07-08] MEDS: methadone 10mg tablet PO SCH (08:55)
[2018-07-08 09:16] LABS: CHOL/HDL RATIO 2.6 (0.00-4.99); CHOLESTEROL 100 MG/DL (0-200); HDL CHOLESTEROL 38 MG/DL (35-60); LDL CHOLESTEROL 52 MG/DL (50-100); TRIGLYCERIDES 71 MG/DL (20-135)
--- NOTE | 2018-07-08 11:33 | NUR ---
Nutrition consult: "pt hx maribel-en-y and edentulous." Hx DM A1C 8.1. Pt admit w/ SI s/p SA from [employer]. Pt is placed on mechanical soft ground meats diet for chewing issues and not appropriate for any diet reinforcement at this time w/ current DX. PO 100% meals meeting needs. Addendum: 07/08/18 at [address] Amended: Links added.
[2018-07-08] MEDS: hydrOXYzine 25 MG tablet PO PRN (15:02)
[2018-07-08] MEDS: hydrOXYzine 25 MG tablet PO SCH (17:31)
--- NOTE | 2018-07-08 17:59 | NUR ---
Nursing Progress Note Legal hold: 5150 Client on involuntary status for DTS. Report received from Jamila Oliver RN with use of SBAR. Why are they here: Patient has come into the ER everyday for the past three days. States she had a plan to jump off [address] 08/06. Patient now reports that she feels suicidal, but has no plan. Patient has been off her medications for approximately 5 days now. Patient's tox screen was positive for amphetamines (which patient states that she takes Adderall and this tests positive), methadone, THC. Patient has past history of substance abuse. Pt. is homeless. Patient has chronic pain, DM, gastric bypass. Hep C, hx of MRSA. Assessment What has happened this shift: Pt sleeping in bed at change of shift. She awakens just before breakfast and joins other in the group room to eat. She takes her medications after breakfast without any issue and then lays back down to bed. She takes her morning medications without issue. She requests to find out information regarding placement of her daughter, CPS number is provided to patient. Patient is able to find out that her daughter is safe and feels comforted by this. Patient reports that she is not feeling suicidal and that she would like to focus on her wellness during her stay here so that she can be healthy. Patient does report feeling anxious twice during the day and Atarax is administered as prescribed. S/I, H/I: denies A/VH: Denies Sleep: 7.25hrs NOC and rested during the day ADL's: Independent Group attendance: yes Were meds taken: yes Any med S/E: None reported, Methadone dose may need adjustment due to sleepiness Mental Status Exam Appearance: Disheveled hair, changed into clothing from closed Eye contact: direct Behavior: friendly, cooperative, sleepy Speech: soft tone, normal rate/rhythm Mood: sad but hopeful Affect: restricted Thought process: Linear Thought Content: focused on wellness Cognition: A&Ox4 Insight: Fair Judgment: Poor Interventions PRN's used: atarax for anxiety Therapeutic interventions: Provided therapeutic assessment, maintained safe therapeutic milieu, provided active listening with positive feedback, medication education as needed, monitored for change in behavior and needed intervention. Q 15 min checks. Restraints/seclusion/emergency medication: None. Justification of Continued Inpatient Treatment: Patient recently suicidal, therapeutic support and medication management needed to provide stabilization, and prevent decompensation decreasing risk to patient for readmittance to in-patient unit.
[2018-07-08 20:00] VITALS: BP 103/61
[2018-07-08] MEDS: aripiprazole 5mg tablet PO SCH (20:30)
[2018-07-08] MEDS: doxepin 25mg capsule PO SCH (20:30)
[2018-07-08] MEDS ORDERED: MESSAGE TO PHARMACY PO ONE (22:10)
[2018-07-08] MEDS ORDERED: glucagon, human recombinant 1mg kit SUBCUT PRN (22:10)
[2018-07-08] MEDS ORDERED: dextrose 50%-water 50ml dispensing syringe IV PRN ×2 (22:10)
[2018-07-08] MEDS ORDERED: dextrose ORAL solution 15 GM/59 ML bottle PO PRN ×2 (22:10)
--- NOTE | 2018-07-08 22:19 | NUR ---
Nursing Progress Note Legal hold: 5150 Client on involuntary status for DTS. Report received from TAMAR Deng with use of SBAR. Why are they here: Patient has come into the ER everyday for the past three days. States she had a plan to jump off [employer] bridge 08/06. Patient now reports that she feels suicidal, but has no plan. Patient has been off her medications for approximately 5 days now. Patient's tox screen was positive for amphetamines (which patient states that she takes Adderall and this tests positive), methadone, THC. Patient has past history of substance abuse. Pt. is homeless. Patient has chronic pain, DM, gastric bypass. Hep C, hx of MRSA. Assessment What has happened this shift: Pt resting in room at change of shift. She got up to attend HS snack and watched TV with peers before returning to her room. During 1:1, she stated she doesn't feel SI necessarily, but she feels inbetween wanting to live and . "I feel blah". She did state she is feeling more positive about getting better while she is here, and she feels better about her kids knowing there is some sort of "plan through CPS". Pt less sedated this evening but still falls asleep during conversation. Catapres held due to pt not meeting BP parameters, otherwise pt compliant with medications. S/I, H/I: Denies HI, states "Don't want to live, Don't want to " regarding SI A/VH: Denies Sleep: See Sleep Hour Charting; pt sleeps throughout the night ADL's: Independent Group attendance: Y - HS Snack Were meds taken: Y Any med S/E: None reported, Methadone dose may need adjustment due to sleepiness Mental Status Exam Appearance: Disheveled hair, wearing unit green scrubs and nonskid socks Eye contact: Direct Behavior: Cooperative, sleepy Speech: soft tone, normal rate/rhythm Mood: Sad but "more positive" Affect: Restricted Thought process: Linear Thought Content: Getting better Cognition: A&Ox4 Insight: Fair Judgment: Poor Interventions PRN's used: None Therapeutic interventions: Provided therapeutic assessment, maintained safe therapeutic milieu, provided active listening with positive feedback, medication education as needed, monitored for change in behavior and needed intervention. Q 15 min checks. Restraints/seclusion/emergency medication: None. Justification of Continued Inpatient Treatment: Patient recently suicidal, therapeutic support and medication management needed to provide stabilization, and prevent decompensation decreasing risk to patient for readmittance to in-patient unit.
[2018-07-09] MEDS: metFORMIN 500mg tablet PO SCH ×2 (08:00→20:53)
[2018-07-09] MEDS ORDERED: ferrous sulfate ER tablet 140 MG TABLET.ER PO SCH (08:00)
[2018-07-09 08:08] VITALS: BP 109/67
[2018-07-09] MEDS: cloNIDine 0.1 mg tablet PO SCH ×2 (08:17→20:48)
[2018-07-09] MEDS: ferrous sulfate 325mg tablet PO SCH ×3 (08:17→17:30)
[2018-07-09] MEDS: buPROPion SR 150mg tablet PO SCH (08:18)
[2018-07-09] MEDS: methadone 10mg tablet PO SCH (08:18)
[2018-07-09] MEDS: insulin Lispro (HumaLOG) vial - multi-dose SQ SCH ×3 (08:32→18:12)
[2018-07-09] MEDS: hydrOXYzine 25 MG tablet PO SCH ×2 (08:35→17:30)
[2018-07-09 09:24] LABS: FERRITIN 22 NG/ML (8-252)
[2018-07-09 09:29] LABS: % IRON SATURATION 4 % (11-46); IRON 16 UG/DL (49-151); TOTAL IRON BINDING CAPACITY 444 UG/DL (259-388)
[2018-07-09] MEDS: LORazepam 1 MG tablet PO PRN ×2 (12:33→19:53)
--- NOTE | 2018-07-09 16:59 | NUR ---
Art Therapy Group (continued): Patient attended group for the entire session,in between leaving the room and returning several times. Patient sat apart from the group,mostly ruminating on a situation involving her son she was worried about. Forty-five minutes into group, pt. choose to draw her ID emotions "Worried v.s.Peaceful. She was able to ID and express her emotions on paper, which she shared briefly in the group process. She found it difficult to concentrate or complete her journaling or access any peaceful thoughts to balance out her anxious thoughts and feelings. She did not interact with her peers. * For a complete overview, please refer to the group note. Nicole Monreal MA, [facility] #[id number] [facility] Art Therapist Addendum: 07/09/18 at 1702 by Nicole Monreal SS Amended: Links added.
--- NOTE | 2018-07-09 17:47 | NUR ---
Nursing Progress Note Legal hold: 5150 Client on involuntary status for DTS. Report received from TAMAR Ivan with use of SBAR. Why are they here: Patient has come into the ER everyday for the past three days. States she had a plan to jump off [address] 08/06. Patient now reports that she feels suicidal, but has no plan. Patient has been off her medications for approximately 5 days now. Patient's tox screen was positive for amphetamines (which patient states that she takes Adderall and this tests positive), methadone, THC. Patient has past history of substance abuse. Pt. is homeless. Patient has chronic pain, DM, gastric bypass. Hep C, hx of MRSA. Assessment What has happened this shift: Pt resting in room at change of shift. She is anxious and tearful regarding her son. She was able to briefly contact him and reports he is suicidal and she is worried. She was unable to get his location before he hung up and was unable to contact him again to follow up. She reached out ot [employer] and a LEISA was initated for him, which was somewhat relieving for her. She was tearful throughout the day because of this. She did attend group and eat all snacks offered. She is aware of her methadone being decreased today as well as insulin protocol being initiated. She uses Atarax PRN in the AM d/t anxiety and stress. In the afternoon she requests to have Ativan d/t continued anxiety and stress. Pt later became upset and vomited up her lunch d/t roommate being verbally aggressive with her. Later made up with roommate and reports she no longer feels threatened by her. S/I, H/I: Denies HI, SI not reported A/VH: Denies Sleep: 8.25hrs per NOC ADL's: Independent Group attendance: Y Were meds taken: Y Any med S/E: None reported Mental Status Exam Appearance: Disheveled hair, wearing street clothes, changed into scrubs Eye contact: Direct Behavior: Cooperative, stressed Speech: soft tone, normal rate/rhythm Mood: Sad, anxious, stressed Affect: Restricted Thought process: Linear Thought Content: focused on her son Cognition: A&Ox4 Insight: Fair Judgment: Poor Interventions PRN's used: Atarax in AM & Ativan in afternoon Therapeutic interventions: Provided therapeutic assessment, maintained safe therapeutic milieu, provided active listening with positive feedback, medication education as needed, monitored for change in behavior and needed intervention. Q 15 min checks. Restraints/seclusion/emergency medication: None. Justification of Continued Inpatient Treatment: Patient recently suicidal, therapeutic support and medication management needed to provide stabilization, and prevent decompensation decreasing risk to patient for readmittance to in-patient unit.
[2018-07-09] MEDS: hydrOXYzine 25 MG tablet PO PRN (19:10)
[2018-07-09 20:00] VITALS: BP 109/63
--- NOTE | 2018-07-09 20:15 | NUR ---
Pts minor son arrived at the unit during visiting hours and I explained to him that he was unable to come on the unit due to his age, he became upset and stated he didn't know what to do and that he was on the streets and needed to talk to his Mom. Pt was allowed to talk to son at the door and she told her son that she had contacted CPS and instructed him to go to the ER. He was with another 18 year old female (unknown relation) and left at that time. Shortly after the son was again at the door of the unit, this time he became belligerent and was calling Juany coffman as she had answered the phone when he rang the tijerina. Juany and that was present on the unit went to talk to the son, he continued to be agitated and hung up the phone so hard it had fallen apart. Security redirected him and had him come sit in the lobby and I contacted CPS to follow up on mothers phone call. I spoke to the social welfare research worker remote operations producer and she advised me she was sending [employer] to forklift picker the minor. Per security to patients son left with a family member prior to [employer] coming.
[2018-07-09] MEDS: doxepin 25mg capsule PO SCH (20:48)
[2018-07-09] MEDS: aripiprazole 5mg tablet PO SCH (20:49)
[2018-07-09] MEDS ORDERED: insulin glargine (Lantus) pen - multi-dose SQ SCH (21:00)
--- NOTE | 2018-07-10 00:03 | NUR ---
Nursing Progress Note Legal hold: 5150 Client on involuntary status for DTS. Report received from TAMAR Deng with use of SBAR. Why are they here: Patient has come into the ER everyday for the past three days. States she had a plan to jump off [place] [address] 08/06. Patient now reports that she feels suicidal, but has no plan. Patient has been off her medications for approximately 5 days now. Patient's tox screen was positive for amphetamines (which patient states that she takes Adderall and this tests positive), methadone, THC. Patient has past history of substance abuse. Pt. is homeless. Patient has chronic pain, DM, gastric bypass. Hep C, hx of MRSA. Assessment What has happened this shift: One to one with the patient to assess severity of depressive symptoms and self harm risk. She stated that she does feel she is getting better here with "some bumps in the road" She reports her concentration and focus is poor. The patient's son came to see her but he is a minor and when told an arrangement would have to be made for him to come onto the unit he left and was sitting in the lobby. Security staff and the remote sensing technician became involved at that point and CPS was contacted. The patient was glad that he was OK but very anxious about how he is doing. She requested and received PRN ativan. S/I, H/I: Denies HI, states SI "a little bit" A/VH: Denies Sleep: ADL's: Independent Group attendance: No PM group Were meds taken: Y Any med S/E: None reported Mental Status : alert and oriented Appearance: Disheveled hair, wearing green scrubs Eye contact: Direct Behavior: Cooperative, pacing in the alba Speech: normal rate/rhythm, Coherent, spontaneous Mood:anxious, stressed Affect: Restricted Thought process: Linear Thought Content: focused on her son Cognition: A&Ox4 Insight: Fair Judgment: Poor Interventions PRN's used: PRN ativan. Therapeutic interventions: Provided therapeutic assessment, maintained safe therapeutic milieu, provided active listening with positive feedback, medication education as needed, monitored for change in behavior and needed intervention. Q 15 min checks. Restraints/seclusion/emergency medication: None. Justification of Continued Inpatient Treatment: The patient continues to endorse suicidal thinking.
[2018-07-10 07:23] VITALS: BP 102/55
[2018-07-10] MEDS: ferrous sulfate 325mg tablet PO SCH ×3 (07:27→16:53)
[2018-07-10] MEDS: cloNIDine 0.1 mg tablet PO SCH ×2 (07:27→20:40)
[2018-07-10] MEDS: buPROPion SR 150mg tablet PO SCH (07:27)
[2018-07-10] MEDS: metFORMIN 500mg tablet PO SCH ×2 (07:27→20:43)
[2018-07-10] MEDS: hydrOXYzine 25 MG tablet PO PRN (07:28)
[2018-07-10] MEDS ORDERED: methadone 5mg tablet PO SCH (08:00)
[2018-07-10] MEDS ORDERED: methadone 10mg tablet PO SCH (08:00)
[2018-07-10] MEDS: insulin Lispro (HumaLOG) vial - multi-dose SQ SCH ×3 (09:30→18:01)
[2018-07-10] MEDS: hydrOXYzine 25 MG tablet PO SCH ×3 (12:40→20:40)
[2018-07-10] MEDS: LORazepam 1 MG tablet PO PRN (14:14)
--- NOTE | 2018-07-10 15:38 | NUR ---
1:1 COLLATERAL DEBBY made TC to [facility] to learn who is assigned to pt's CPS Worker. DEBBY learned assigned SW is Garima Linda, Senior Channel Process Plant Operator at [phone]. DEBBY left message requesting a return contact. SUNITA Green Addendum: 07/10/18 at 1756 by Jyothi Lance SS Addition to note: Pt reports she wants to stay at [facility] to get better, rather than attend CPS Intermediate Hearing on 07/11/2018. DEBBY will assist pt in learning when Jurisdiction Hearing is for services and return of children. SUNITA Green
--- NOTE | 2018-07-10 16:38 | NUR ---
Nursing Progress Note Legal hold: voluntary Client on involuntary status for DTS. Report received from TAMAR Ivan with use of SBAR. Why are they here: Patient has come into the ER everyday for the past three days. States she had a plan to jump off [employer] bridge 08/06. Patient now reports that she feels suicidal, but has no plan. Patient has been off her medications for approximately 5 days now. Patient's tox screen was positive for amphetamines (which patient states that she takes Adderall and this tests positive), methadone, THC. Patient has past history of substance abuse. Pt. is homeless. Patient has chronic pain, DM, gastric bypass. Hep C, hx of MRSA. Assessment What has happened this shift: Patient is up and about at change of shift. She reports that she is anxious because she does not know what happened with her son after he left here. During request for anxiety medication she, in a nonchalant manner, says just kill me, whatever. She takes her medication without any issue. She joins others for breakfast in the group room and after returns to her room. She changes the bedding on her bed and talks about her concerns with her son. She organizes her shelves and puts everything in its place. She attends group and after makes phone calls to CPS. She appears anxious throughout the day, she states that she is tired but cannot sleep. She is necessarily apologetic, saying sorry many times. She is assured that she has no reason to apologize. S/I, H/I: passive suicidal ideation, no intent A/VH: Denies Sleep: 6.5hrs NOC ADL's: Independent, showered today Group attendance: yes Were meds taken: Y Any med S/E: None reported Mental Status : alert and oriented Appearance: Disheveled hair, wearing green scrubs, showered later in the afternoon Eye contact: Direct Behavior: Cooperative, anxious Speech: normal rate/rhythm, Mood: Anxious, stressed Affect: Restricted Thought process: Linear Thought Content: focused on her children, her check, and court tomorrow Cognition: A&Ox4 Insight: Fair Judgment: Poor Interventions PRN's used: PRN ativan. Therapeutic interventions: Provided therapeutic assessment, maintained safe therapeutic milieu, provided active listening with positive feedback, medication education as needed, monitored for change in behavior and needed intervention. Q 15 min checks. Restraints/seclusion/emergency medication: None. Justification of Continued Inpatient Treatment: Patient recently suicidal, therapeutic support and medication management needed to provide stabilization, and prevent decompensation decreasing risk to patient for readmittance to in-patient unit.
[2018-07-10 20:00] VITALS: BP 105/67
[2018-07-10] MEDS: doxepin 25mg capsule PO SCH (20:41)
[2018-07-10] MEDS: aripiprazole 5mg tablet PO SCH (20:42)
--- NOTE | 2018-07-10 21:35 | NUR ---
Order obtained to D/C diabetic protocol as patient is type II diabetic and does not use insulin on the outside.
[2018-07-11] MEDS: LORazepam 1 MG tablet PO PRN (00:33)
--- NOTE | 2018-07-11 01:14 | NUR ---
Nursing Progress Note Legal hold: 5250 Client on involuntary status for DTS. Report received from TAMAR Recio with use of SBAR. Why are they here: Patient has come into the ER everyday for the past three days. States she had a plan to jump off [address] bridge 08/06. Patient now reports that she feels suicidal, but has no plan. Patient has been off her medications for approximately 5 days now. Patient's tox screen was positive for amphetamines (which patient states that she takes Adderall and this tests positive), methadone, THC. Patient has past history of substance abuse. Pt. is homeless. Patient has chronic pain, DM, gastric bypass. Hep C, hx of MRSA. Assessment Patient in her room at the change of shift. She comes and requests a snack which is given to her. She agrees to a 1:1 assessment at her bedside. She tearfully speaks of how hopeless she feels and states I tried to jump off the [place]. She says she feels she had no other choices than to leave her children and come to get help. She endorses feeling of depression and anxiety. She states she feels its best for her to not attend the CPS hearing and that she stay and get treatment. She denies SI/HI, AH, but states I thought I saw a balloon in my room earlier. but I thinks its because she is tired. She is cooperative for all her evening medications. She does present in the middle of the night stating she has been up and she feels anxious, snack and Ativan is provided at this time. S/I, H/I: Denies SI/HI A/VH: Denies AH, VH- states she saw a balloon in her room earlier today Sleep: See sleep assessment ADL's: Independent Group attendance: No PM group Were meds taken: Y Any med S/E: None reported Mental Status : Alert and oriented Appearance: Disheveled hair, wearing street clothes Eye contact: Direct Behavior: Cooperative, pacing in the alba Speech: Normal rate/rhythm, Coherent, spontaneous Mood: Anxious, hopeless Affect: Restricted Thought process: Linear Thought Content: Focused on treatment Cognition: A&Ox4 Insight: Fair Judgment: Poor Interventions PRN's used: Ativan Therapeutic interventions: Provided therapeutic assessment, 1:1 assessment, maintained safe therapeutic milieu, provided active listening with positive feedback, medication education as needed, monitored for change in behavior and needed intervention. Q 15 min checks. Restraints/seclusion/emergency medication: None. Justification of Continued Inpatient Treatment: Continued therapeutic support and medication management needed to provide stabilization, prevent decompensation, decreasing risk to patient and readmittance.
[2018-07-11] MEDS: hydrOXYzine 25 MG tablet PO SCH (04:27)
[2018-07-11] MEDS: cloNIDine 0.1 mg tablet PO SCH ×2 (07:40→20:34)
[2018-07-11 07:44] VITALS: BP 102/60
[2018-07-11] MEDS ORDERED: methadone 5mg tablet PO SCH (08:00)
[2018-07-11] MEDS ORDERED: methadone 10mg tablet PO SCH (08:00)
[2018-07-11] MEDS: ferrous sulfate 325mg tablet PO SCH ×3 (08:04→18:19)
[2018-07-11] MEDS: buPROPion SR 150mg tablet PO SCH (08:04)
[2018-07-11] MEDS: metFORMIN 500mg tablet PO SCH ×2 (08:04→20:35)
[2018-07-11] MEDS: methadone 10mg tablet PO SCH (08:04)
[2018-07-11] MEDS: hydrOXYzine 25 MG tablet PO PRN ×2 (09:59→16:21)
--- NOTE | 2018-07-11 15:45 | NUR ---
RN consult: Pt requesting chopped foods on tray since that's how she eats at home; dietary notified. Addendum: 07/11/18 at [address] Amended: Links added.
[2018-07-11 16:07] LABS: OCCULT BLOOD STOOL NEGATIVE (Neg)
--- NOTE | 2018-07-11 17:43 | NUR ---
Nursing Progress Note Legal hold: Voluntary Client on voluntary status for DTS. Report received from MONIQUE Ivan with use of KEITH. Elen hy are they here: Patient has come into the ER everyday for the past three days. States she had a plan to jump off [address] bridge 08/06. Patient now reports that she feels suicidal, but has no plan. Patient has been off her medications for approximately 5 days now. Patient's tox screen was positive for amphetamines (which patient states that she takes Adderall and this tests positive), methadone, THC. Patient has past history of substance abuse. Pt. is homeless. Patient has chronic pain, DM, gastric bypass. Hep C, hx of MRSA. Assessment Patient was sitting up in her room at the change of shift. She was compliant with medication administration. Catipress was held due to SBP out of medication parameters. Pt reports anxiety. She said she is concerned about her daughter going to court today. She reports she is sad, depressed, and lonely. She denied SI and A H. When asked about visual hallucinations, she said that last night she saw the contreras, acosta, and thought she saw her grandson. During the day, she attempted to make phone calls to resolve multiple issues regarding her family and possessions. She became upset when the phone was taken away to allow other pts access to the phone. 1mg Ativan order was discontinued due to concern about administering Methadone and Ativan together and possible ENTRY LEVEL ACCOUNTANT affects. She was given Atarax x2 for anxiety. S/I, H/I: Denies SI/HI A/VH: Denies AH, VH- states she thought she saw the contreras, acosta and her grandson in her room during the night Sleep: Napped ADL's: Independent Group attendance: Attended morning and afternoon groups Were meds taken: Yes Any med S/E: None reported or noted Mental Status Exam Appearance: Hair appears disheveled, clothes clean Eye contact: Direct Behavior: Crying, Frequently asking for anxiety medications Speech: Normal rate and rhythm Mood: Depressed Affect: Anxious Thought process: Perseverative Thought Content: Concern about problems with family and possessions Cognition: A&Ox4 Insight: Poor Judgment: Poor Interventions PRN's used: Atarax, Tylenol Therapeutic interventions: Provided therapeutic assessment, 1:1 assessment, maintained safe therapeutic milieu, provided active listening with positive feedback, medication education as needed, monitored for change in behavior and needed intervention. Q 15 min checks. Restraints/seclusion/emergency medication: None. Justification of Continued Inpatient Treatment: Continued therapeutic support and medication management needed to provide stabilization, prevent decompensation, decreasing risk to patient and readmittance.
[2018-07-11] MEDS: LORazepam 0.5 MG tablet PO PRN (19:09)
[2018-07-11 20:03] VITALS: BP 122/68
[2018-07-11] MEDS: aripiprazole 5mg tablet PO SCH (20:35)
[2018-07-11] MEDS: doxepin 25mg capsule PO SCH (20:37)
--- NOTE | 2018-07-11 23:57 | NUR ---
Nursing Progress Note Legal hold: 5250 Client on involuntary status for DTS. Report received from TAMAR Recio with use of SBAR. Why are they here: Patient has come into the ER everyday for the past three days. States she had a plan to jump off [employer] bridge 08/06. Patient now reports that she feels suicidal, but has no plan. Patient has been off her medications for approximately 5 days now. Patient's tox screen was positive for amphetamines (which patient states that she takes Adderall and this tests positive), methadone, THC. Patient has past history of substance abuse. Pt. is homeless. Patient has chronic pain, DM, gastric bypass. Hep C, hx of MRSA. Assessment Patient in her room at the change of shift. She states she is really anxious and request a PRN at this time. 0.5 mg of Ativan is administered. 1:1 assessment completed at bedside. She denies SI/HI stating "N, I am sad, tired, I feel hopeless" She goes on to express her worry about her son still being on the street and then states Her anxiety is over "My kids, my son is still on the street, but I do think that he is going to try and drain my accounts." She say's he has his card and she is trying to get call the bank to cancel her cards. Patient is tearful this evening and keeps to herself mostly except for asking for medications or food. She is compliant with all her evening medications and goes to bed independently. S/I, H/I: Denies SI/HI A/VH: Denies AH/VH Sleep: Currently sleeping, See sleep assessment ADL's: Independent Group attendance: No PM group Were meds taken: Y Any med S/E: None reported Mental Status : Alert and oriented Appearance: Disheveled hair, wearing street clothes Eye contact: Direct Behavior: Cooperative, crying at times Speech: Normal rate/rhythm, Coherent, spontaneous Mood: Anxious, hopeless Affect: Restricted Thought process: Linear Thought Content: Focused on financial issues and children Cognition: A&Ox4 Insight: Fair Judgment: Poor Interventions PRN's used: Ativan Therapeutic interventions: Provided therapeutic assessment, 1:1 assessment, maintained safe therapeutic milieu, provided active listening with positive feedback, medication education as needed, monitored for change in behavior and needed intervention. Q 15 min checks. Restraints/seclusion/emergency medication: None. Justification of Continued Inpatient Treatment: Continued therapeutic support and medication management needed to provide stabilization, prevent decompensation, decreasing risk to patient and readmittance.
[2018-07-12] MEDS: hydrOXYzine 25 MG tablet PO PRN ×3 (05:27→19:54)
[2018-07-12] MEDS: metFORMIN 500mg tablet PO SCH ×2 (07:55→20:49)
[2018-07-12] MEDS: buPROPion 100mg tablet PO SCH (07:55)
[2018-07-12] MEDS: ferrous sulfate 325mg tablet PO SCH ×3 (07:55→18:13)
[2018-07-12] MEDS: cloNIDine 0.1 mg tablet PO SCH ×2 (07:55→20:00)
[2018-07-12] MEDS: methadone 10mg tablet PO SCH (07:55)
[2018-07-12 08:00] VITALS: BP 120/66
[2018-07-12] MEDS: LORazepam 0.5 MG tablet PO PRN ×2 (08:54→18:46)
--- NOTE | 2018-07-12 17:09 | NUR ---
Nursing Progress Note Legal hold: Voluntary Client on voluntary status for DTS. Report received from MONIQUE Tello with use of SBAR. Why are they here: Patient has come into the ER everyday for the past three days. States she had a plan to jump off [address] 08/06. Patient now reports that she feels suicidal, but has no plan. Patient has been off her medications for approximately 5 days now. Patient's tox screen was positive for amphetamines (which patient states that she takes Adderall and this tests positive), methadone, THC. Patient has past history of substance abuse. Pt. is homeless. Patient has chronic pain, DM, gastric bypass. Hep C, hx of MRSA. Assessment Patient up and visible on the unit today patient med seeking most of the day for anxiety. Patient affect and mood someone labile: at times patient has flat affect and appears fine and other times patient is crying and appearing overwhelmed. Patient perseverating today on food and require redirection at times to not eat too much and not eat too much food that was not good for diabetes. Patient excepting of redirection by staff. Patient also changed her clothes three or four times today. Patient did not attend groups. Will continue to reassure patient as needed. S/I, H/I: Denies SI/HI A/VH: Denies Sleep: Napped ADL's: Independent Group attendance: no Were meds taken: Yes Any med S/E: None reported or noted Mental Status Exam Appearance: Hair appears disheveled, clothes clean Eye contact: Direct Behavior: Crying, Frequently asking for anxiety medications Speech: Normal rate and rhythm Mood: Depressed Affect: Anxious Thought process: Perseverative Thought Content: Concern about problems with family and possessions Cognition: A&Ox4 Insight: Poor Judgment: Poor Interventions PRN's used: Atarax, ativan Therapeutic interventions: Provided therapeutic assessment, 1:1 assessment, maintained safe therapeutic milieu, provided active listening with positive feedback, medication education as needed, monitored for change in behavior and needed intervention. Q 15 min checks. Restraints/seclusion/emergency medication: None. Justification of Continued Inpatient Treatment: Continued therapeutic support and medication management needed to provide stabilization, prevent decompensation, decreasing risk to patient and readmittance.
[2018-07-12 20:00] VITALS: BP 97/53
[2018-07-12] MEDS: doxepin 25mg capsule PO SCH (20:49)
[2018-07-12] MEDS: aripiprazole 5mg tablet PO SCH (20:49)
--- NOTE | 2018-07-13 00:21 | NUR ---
Nursing Progress Note Legal hold: voluntary Client on voluntary status for DTS. Report received from TAMAR Moseley with use of SBAR. Why are they here: Patient has come into the ER everyday for the past three days. States she had a plan to jump off [employer] [address] 08/06. Patient now reports that she feels suicidal, but has no plan. Patient has been off her medications for approximately 5 days now. Patient's tox screen was positive for amphetamines (which patient states that she takes Adderall and this tests positive), methadone, THC. Patient has past history of substance abuse. Pt. is homeless. Patient has chronic pain, DM, gastric bypass. Hep C, hx of MRSA. Assessment Patient is laying in bed on assessment. She states she threw up after her dinner from an upset stomach. She said laying down has helped and she is drinking water. She requests applesauce, which she is given. Pt denies suicidal ideation at this time but admits she is still feeling depressed. She is compliant with all her evening medications. She reports no vomiting after medications and falls asleep. S/I, H/I: Denies SI/HI A/VH: Denies AH/VH Sleep: See sleep assessment notation ADL's: Independent Group attendance: No PM group Were meds taken: Yes Any med S/E: None reported Mental Status : A&Ox4 Appearance: Disheveled hair Eye contact: fair Behavior: lays in bed all of shift. Speech: Normal rate/rhythm, Coherent Mood: sleepy, ready for bed Affect: flat Thought process: Linear Thought Content: Focused on going to bed Cognition: A&Ox4 Insight: Fair Judgment: Poor Interventions PRN's used: none Therapeutic interventions: Provided therapeutic assessment, 1:1 assessment, maintained safe therapeutic milieu, provided active listening with positive feedback, medication education as needed, monitored for change in behavior and needed intervention. Q 15 min checks. Restraints/seclusion/emergency medication: None. Justification of Continued Inpatient Treatment: Continued therapeutic support and medication management needed to provide stabilization, prevent decompensation, decreasing risk to patient and readmittance.
[2018-07-13] MEDS: hydrOXYzine 25 MG tablet PO PRN ×3 (06:00→19:43)
[2018-07-13] MEDS: buPROPion 100mg tablet PO SCH (07:44)
[2018-07-13] MEDS: metFORMIN 500mg tablet PO SCH ×2 (07:44→20:28)
[2018-07-13] MEDS: cloNIDine 0.1 mg tablet PO SCH ×2 (07:44→20:00)
[2018-07-13] MEDS: ferrous sulfate 325mg tablet PO SCH ×3 (07:44→17:12)
[2018-07-13] MEDS: methadone 10mg tablet PO SCH (07:44)
[2018-07-13 08:00] VITALS: BP_SYST 127; BP_SYST 97; BP_DIAS 71; BP_DIAS 73
[2018-07-13] MEDS: LORazepam 0.5 MG tablet PO PRN ×2 (09:23→17:12)
--- NOTE | 2018-07-13 14:28 | NUR ---
Nursing Progress Note Legal hold: Voluntary Client on voluntary status for DTS. Report received from MONIQUE Tello with use of SBAR. Why are they here: Patient has come into the ER everyday for the past three days. States she had a plan to jump off [address] 08/06. Patient now reports that she feels suicidal, but has no plan. Patient has been off her medications for approximately 5 days now. Patient's tox screen was positive for amphetamines (which patient states that she takes Adderall and this tests positive), methadone, THC. Patient has past history of substance abuse. Pt. is homeless. Patient has chronic pain, DM, gastric bypass. Hep C, hx of MRSA. Assessment Received pt awake and walking in the hallway after shift report. She immediately asked if she could get a medication for anxiety. Took AM meds and ate brkfst, but felt nausea and vomited after brkfst, She reports this is due to eating too much secondary to Hx of bypass surgery. AM BS was 153. Pt received prns for anxiety with modest effect. Pt had a phone call with daughter this AM which disturbed her and she cried for a while in bed. Pt able to voice how two of her children have treated her poorly and is able to see them in foster care as a good thing, I have a new life on my own. She accepts ideas to reduce anxiety and redirection well. She is labile but calm and cooperative. S/I, H/I: Denies SI/HI A/VH: Denies Sleep: Napped ADL's: Independent Group attendance: Yes Were meds taken: Yes Any med S/E: None reported or noted Mental Status Exam Appearance: Hair appears disheveled, clothes clean Eye contact: Direct Behavior: Crying, Frequently asking for anxiety medications Speech: Normal rate and rhythm Mood: Depressed Affect: Anxious Thought process: Focused on being wronged by children Thought Content: Concern about problems with family and possessions Cognition: A&Ox4 Insight: Poor Judgment: Poor Interventions PRN's used: Atarax, ativan Therapeutic interventions: Provided therapeutic assessment, 1:1 assessment, maintained safe therapeutic milieu, provided active listening with positive feedback, medication education as needed, monitored for change in behavior and needed intervention. Q 15 min checks. Restraints/seclusion/emergency medication: None. Justification of Continued Inpatient Treatment: Continued therapeutic support and medication management needed to provide stabilization, prevent decompensation, decreasing risk to patient and readmittance.
[2018-07-13 20:00] VITALS: BP 107/53
[2018-07-13] MEDS: aripiprazole 5mg tablet PO SCH (20:28)
[2018-07-13] MEDS: doxepin 25mg capsule PO SCH (20:30)
--- NOTE | 2018-07-13 23:20 | NUR ---
Nursing Progress Note Legal hold: voluntary Client on voluntary status for DTS. Report received from TAMAR Warner with use of SBAR. Why are they here: Patient has come into the ER everyday for the past three days. States she had a plan to jump off [employer] bridge 08/06. Patient now reports that she feels suicidal, but has no plan. Patient has been off her medications for approximately 5 days now. Patient's tox screen was positive for amphetamines (which patient states that she takes Adderall and this tests positive), methadone, THC. Patient has past history of substance abuse. Pt. is homeless. Patient has chronic pain, DM, gastric bypass. Hep C, hx of MRSA. Assessment Patient is laying in bed at shift change. She states that she is glad her children got into foster care into "good homes" and this "takes a weight off her shoulders. She says that her daughter is very self centered and she was originally suicidal because "I got a hotel room for me and my daughter and she went out with friends and wouldn't bring me my phone, so I freaked out and went to jump off the [place] bridge and then they brought me in here." "If she just would have brought me my phone we could have gone to the [place] the next day and I could have gotten dosed." Pt is medication compliant and request her PRN atarax. S/I, H/I: Denies SI/HI A/VH: Denies AH/VH Sleep: See sleep assessment notation ADL's: Independent Group attendance: No PM group Were meds taken: Yes Any med S/E: None reported Mental Status : A&Ox4 Appearance: Disheveled hair Eye contact: fair Behavior: visible on the unit Speech: Normal rate/rhythm, Coherent Mood:upset to relieved Affect: flat Thought process: Linear Thought Content: relieved her children are in foster care. Cognition: A&Ox4 Insight: Fair Judgment: Poor Interventions PRN's used: Atarax Therapeutic interventions: Provided therapeutic assessment, 1:1 assessment, maintained safe therapeutic milieu, provided active listening with positive feedback, medication education as needed, monitored for change in behavior and needed intervention. Q 15 min checks. Restraints/seclusion/emergency medication: None. Justification of Continued Inpatient Treatment: Continued therapeutic support and medication management needed to provide stabilization, prevent decompensation, decreasing risk to patient and readmittance.
[2018-07-14] MEDS: hydrOXYzine 25 MG tablet PO PRN ×3 (04:02→17:03)
[2018-07-14] MEDS: cloNIDine 0.1 mg tablet PO SCH ×2 (07:10→20:00)
[2018-07-14] MEDS: LORazepam 0.5 MG tablet PO PRN ×2 (07:10→20:09)
[2018-07-14] MEDS: methadone 10mg tablet PO SCH (07:10)
[2018-07-14] MEDS: ferrous sulfate 325mg tablet PO SCH ×3 (07:10→16:34)
[2018-07-14] MEDS ORDERED: buPROPion 100mg tablet PO SCH (08:00)
[2018-07-14] MEDS: metFORMIN 500mg tablet PO SCH ×2 (08:06→20:06)
[2018-07-14 08:14] VITALS: BP 101/63
--- NOTE | 2018-07-14 09:46 | NUR ---
Initial: Pt admit w/ major depression remains 11/21 per MD note. PO 75-100% carb controlled meals meeting needs. LBM 07/13. DM ed remains deferred r/t DX. No nutrition concerns at this time. Addendum: 07/14/18 at [address] Amended: Links added.
--- NOTE | 2018-07-14 12:32 | NUR ---
Nursing Progress Note Legal hold: voluntary Client on voluntary status for DTS. Report received from TAMAR Pastrana with use of SBAR. Why are they here: Patient has come into the ER everyday for the past three days. States she had a plan to jump off [address] [employer] [address] 08/06. Patient now reports that she feels suicidal, but has no plan. Patient has been off her medications for approximately 5 days now. Patient's tox screen was positive for amphetamines (which patient states that she takes Adderall and this tests positive), methadone, THC. Patient has past history of substance abuse. Pt. is homeless. Patient has chronic pain, DM, gastric bypass. Hep C, hx of MRSA. Assessment Client is awake at shift change asking for a shower. She showered and took all medications as prescribed. Client is friendly and social today. Her blood sugar was 151. Client is talkative and stays in the group room conversing with other clients and staff. Her mood has been stable today. Her affect is restrictive. She has not been crying or speaking about her children today. She reports the medications are working well and has not experienced side effects. She asked for PRN medications including Atarax and Ativan. S/I, H/I: Passive SI and depression A/VH: Denies AH/VH Sleep: 6.25 hours ADL's: Independent showered today Group attendance: No group today. Did socialize in group room Were meds taken: Yes Any med S/E: None reported Mental Status : A&Ox4 Appearance: Clean, groomed, disheveled Eye contact: good Behavior: visible on the unit, sociable, pleasant, cooperative Speech: Normal rate/rhythm, coherent Mood: depressed Affect: constricted Thought process: Linear Thought Content: No AH or VH. Client was very hungry today and sleepy. Cognition: A&Ox4 Insight: Fair Judgment: Poor Interventions PRN's used: Atarax, Ativan Therapeutic interventions: Provided therapeutic assessment, 1:1 assessment, maintained safe therapeutic milieu, provided active listening with positive feedback, medication education as needed, monitored for change in behavior and needed intervention. Q 15 min checks. Restraints/seclusion/emergency medication: None. Justification of Continued Inpatient Treatment: Continued therapeutic support and medication management needed to provide stabilization, prevent decompensation, decreasing risk to patient and readmittance.
[2018-07-14 20:00] VITALS: BP 94/50
[2018-07-14] MEDS: doxepin 25mg capsule PO SCH (20:07)
[2018-07-14] MEDS: aripiprazole 5mg tablet PO SCH (20:09)
--- NOTE | 2018-07-14 22:47 | NUR ---
Nursing Progress Note Legal hold: voluntary Client on voluntary status for DTS. Report received from TAMAR Pereira with use of SBAR. Why are they here: Patient has come into the ER everyday for the past three days. States she had a plan to jump off [place] [address] 08/06. Patient now reports that she feels suicidal, but has no plan. Patient has been off her medications for approximately 5 days now. Patient's tox screen was positive for amphetamines (which patient states that she takes Adderall and this tests positive), methadone, THC. Patient has past history of substance abuse. Pt. is homeless. Patient has chronic pain, DM, gastric bypass. Hep C, hx of MRSA. Assessment Patient is visible on the unit and in group room socializing with peers watching TV. Pt makes direct eye contact and smiles occasionally. She reports feeling anxious and takes a PRN Ativan at [facility]. She fell asleep with no issue. S/I, H/I: Denies SI/HI A/VH: Denies AH/VH Sleep: See sleep assessment notation ADL's: Independent Group attendance: No PM group Were meds taken: Yes Any med S/E: None reported Mental Status : A&Ox4 Appearance: Disheveled hair Eye contact: fair Behavior: lays in bed all of shift. Speech: Normal rate/rhythm, Coherent Mood: anxious Affect: bland Thought process: Linear Thought Content: feeling anxious Cognition: A&Ox4 Insight: Fair Judgment: Poor Interventions PRN's used: none Therapeutic interventions: Provided therapeutic assessment, 1:1 assessment, maintained safe therapeutic milieu, provided active listening with positive feedback, medication education as needed, monitored for change in behavior and needed intervention. Q 15 min checks. Restraints/seclusion/emergency medication: None. Justification of Continued Inpatient Treatment: Continued therapeutic support and medication management needed to provide stabilization, prevent decompensation, decreasing risk to patient and readmittance.
[2018-07-15] MEDS: hydrOXYzine 25 MG tablet PO PRN ×3 (02:34→18:59)
[2018-07-15] MEDS: buPROPion SR 150mg tablet PO SCH ×2 (07:51→20:29)
[2018-07-15] MEDS: metFORMIN 500mg tablet PO SCH ×2 (07:51→20:29)
[2018-07-15] MEDS: cloNIDine 0.1 mg tablet PO SCH ×2 (07:51→20:30)
[2018-07-15] MEDS: methadone 10mg tablet PO SCH (07:52)
[2018-07-15 08:00] VITALS: BP 113/70
[2018-07-15] MEDS: ferrous sulfate 325mg tablet PO SCH ×3 (08:12→17:52)
[2018-07-15] MEDS: LORazepam 0.5 MG tablet PO PRN (09:30)
[2018-07-15] MEDS: simethicone 80mg chew tab PO PRN (14:50)
--- NOTE | 2018-07-15 17:13 | NUR ---
Nursing Progress Note Legal hold: voluntary Client on voluntary status for DTS. Report received from TAMAR Pastrana with use of SBAR. Why are they here: Patient has come into the ER everyday for the past three days. States she had a plan to jump off [employer] [place] 08/06. Patient now reports that she feels suicidal, but has no plan. Patient has been off her medications for approximately 5 days now. Patient's tox screen was positive for amphetamines (which patient states that she takes Adderall and this tests positive), methadone, THC. Patient has past history of substance abuse. Pt. is homeless. Patient has chronic pain, DM, gastric bypass. Hep C, hx of MRSA. Assessment Patient up and visible on the unit. Patient dressed appropriately with decent hygiene. Patient continues to complain of anxiety at times and requested Ativan and Atarax each at different times throughout the day. Patient also requested nicotine gum which she has not been using and she was agreeable to not being placed on nicotine replacement therapy as she has been off nicotine for over a week. Pt. denies suicidal thoughts and denies a/v alba. Pt did attend groups and interacting with select peers and staff. S/I, H/I: Passive SI and depression A/VH: Denies AH/VH Sleep: periodically resting on bed, but, no napping today ADL's: Independent showered today Group attendance: yes Were meds taken: Yes Any med S/E: None reported Mental Status : A&Ox4 Appearance: Clean, groomed, disheveled Eye contact: good Behavior: visible on the unit, sociable, pleasant, cooperative Speech: Normal rate/rhythm, coherent Mood: depressed Affect: constricted Thought process: Linear Thought Content: No AH or VH. Client was very hungry today and sleepy. Cognition: A&Ox4 Insight: Fair Judgment: Poor Interventions PRN's used: Atarax, Ativan Therapeutic interventions: Provided therapeutic assessment, 1:1 assessment, maintained safe therapeutic milieu, provided active listening with positive feedback, medication education as needed, monitored for change in behavior and needed intervention. Q 15 min checks. Restraints/seclusion/emergency medication: None. Justification of Continued Inpatient Treatment: Continued therapeutic support and medication management needed to provide stabilization, prevent decompensation, decreasing risk to patient and readmittance.
[2018-07-15] MEDS: doxepin 25mg capsule PO SCH (20:29)
[2018-07-15] MEDS: aripiprazole 5mg tablet PO SCH (20:30)
[2018-07-15 20:39] VITALS: BP 107/77
[2018-07-15] MEDS ORDERED: simethicone 80mg chew tab PO SCH (21:00)
--- NOTE | 2018-07-15 23:56 | NUR ---
Nursing Progress Note Legal hold: voluntary Client on voluntary status for DTS. Report received from TAMAR Warner with use of SBAR. Why are they here: Patient has come into the ER everyday for the past three days. States she had a plan to jump off [employer] bridge 08/06. Patient now reports that she feels suicidal, but has no plan. Patient has been off her medications for approximately 5 days now. Patient's tox screen was positive for amphetamines (which patient states that she takes Adderall and this tests positive), methadone, THC. Patient has past history of substance abuse. Pt. is homeless. Patient has chronic pain, DM, gastric bypass. Hep C, hx of MRSA. Assessment Patient is visible on the unit and socializing with peers in the community room. She appears to be more animated today and smiles occasionally. Pt is medication compliant and cooperative with 1:1 assessment. She states that she feels that she is ready to be discharged, "except I am not sure what to do about my methadone, maybe they can keep me here until I am all the way tapered off." S/I, H/I: Denies SI/HI A/VH: Denies AH/VH Sleep: See sleep assessment notation ADL's: Independent Group attendance: No PM group Were meds taken: Yes Any med S/E: None reported Mental Status : A&Ox4 Appearance: Disheveled hair Eye contact: fair Behavior: visible on the unit Speech: Normal rate/rhythm, Coherent Mood:upbeat Affect: improving Thought process: Linear Thought Content: relieved her children are in foster care. Cognition: A&Ox4 Insight: Fair Judgment: Poor Interventions PRN's used: Atarax Therapeutic interventions: Provided therapeutic assessment, 1:1 assessment, maintained safe therapeutic milieu, provided active listening with positive feedback, medication education as needed, monitored for change in behavior and needed intervention. Q 15 min checks. Restraints/seclusion/emergency medication: None. Justification of Continued Inpatient Treatment: Continued therapeutic support and medication management needed to provide stabilization, prevent decompensation, decreasing risk to patient and readmittance.
[2018-07-16] MEDS: LORazepam 0.5 MG tablet PO PRN (02:23)
[2018-07-16] MEDS ORDERED: pantoprazole 40mg Tablet.DR PO SCH ×2 (07:30)
[2018-07-16] MEDS: ferrous sulfate 325mg tablet PO SCH ×2 (07:54→12:37)
[2018-07-16] MEDS: metFORMIN 500mg tablet PO SCH (07:54)
[2018-07-16] MEDS: buPROPion SR 150mg tablet PO SCH (07:54)
[2018-07-16] MEDS: cloNIDine 0.1 mg tablet PO SCH (07:54)
[2018-07-16 07:58] VITALS: BP 118/68
[2018-07-16] MEDS ORDERED: methadone 10mg tablet PO SCH ×2 (08:00)
[2018-07-16] MEDS ORDERED: linagliptin 5mg tablet PO SCH (08:00)
[2018-07-16] MEDS ORDERED: LINA5TAB4 PO (09:33)
[2018-07-16] MEDS ORDERED: BUPR-84 PO (09:33)
[2018-07-16] MEDS ORDERED: ARIP30TA7 PO (09:33)
[2018-07-16] MEDS ORDERED: METF500T PO (09:33)
[2018-07-16] MEDS ORDERED: DOXE150C PO (09:33)
[2018-07-16] MEDS ORDERED: HYDR-3686 PO (09:33)
[2018-07-16] MEDS ORDERED: FER325T PO (09:33)
[2018-07-16] MEDS ORDERED: PANT40TA4 PO (09:33)
[2018-07-16] MEDS ORDERED: CLON0.1T20 PO (09:33)
[2018-07-16] MEDS: hydrOXYzine 25 MG tablet PO PRN (10:01)
[2018-07-16] MEDS: simethicone 80mg chew tab PO PRN (10:01)
--- NOTE | 2018-07-16 14:22 | NUR ---
Nursing Discharge Note Pt discharged at 1355 accompanied by [facility] [employer] truck driver, to take her to the [facility]. Pt left in no acute physical or emotional distress, and not needing nicotine replacement. Pt in pleasant mood with mild restlessness about wanting to leave. She denies SI and has been improving since admission. Pt's valuables were inventoried by [employer], and returned to her. She understands and has been given copies of follow-up plans for medical and mental health needs.
== END 2018-07-16 13:15 | disposition short-term general hospital (02) | DRG 751 ==
LOC: ADULT MH 12:11
PROVIDERS: ADMIT Psychiatry & Neurology Psychiatry; ATTEND Psychiatry & Neurology Psychiatry
DX: F33.3 Major depressive disorder, recurrent, severe with psychotic symptoms (principal); E11.40 Type 2 diabetes mellitus with diabetic neuropathy, unspecified; R45.851 Suicidal ideations; F11.20 Opioid dependence, uncomplicated; D50.9 Iron deficiency anemia, unspecified; F12.90 Cannabis use, unspecified, uncomplicated; B19.20 Unspecified viral hepatitis C without hepatic coma; G89.29 Other chronic pain; M25.559 Pain in unspecified hip; F17.210 Nicotine dependence, cigarettes, uncomplicated; M54.5 Low back pain; F34.1 Dysthymic disorder; F15.10 Other stimulant abuse, uncomplicated; R91.1 Solitary pulmonary nodule; R10.13 Epigastric pain; F41.9 Anxiety disorder, unspecified; G47.00 Insomnia, unspecified; I10 Essential (primary) hypertension; Z59.0 Homelessness; Z79.84 Long term (current) use of oral hypoglycemic drugs; Z79.899 Other long term (current) drug therapy; Z81.8 Family history of other mental and behavioral disorders; Z82.49 Family history of ischemic heart disease and other diseases of the circulatory system; Z83.3 Family history of diabetes mellitus; Z86.14 Personal history of Methicillin resistant Staphylococcus aureus infection; Z87.11 Personal history of peptic ulcer disease; Z98.84 Bariatric surgery status; Z98.51 Tubal ligation status; Z87.440 Personal history of urinary (tract) infections; Z71.6 Tobacco abuse counseling; Z90.49 Acquired absence of other specified parts of digestive tract
CPT/HCPCS: 36415; 80061; 82272; 82728; 82948; 83036; 83540; 83550; 87070; J1815; Q0177

== ENCOUNTER 2018-08-25 16:17 | Emergency (ER) | payer MEDICAID ==
[~2018-08-25] VITALS: Ht 172.7 cm; Wt 85.9 kg
[~2018-08-25 16:17] MED LIST changes: -ARIP30TA11; +ARIP30TA7 PO; -BACDS PO; -BUPR100T7 PO; +BUPR150T8 PO; -CLON0.1T20 PO; -CLOT15CR73 TOP; -CLOT15CR73 TP; -DOCU100C41 PO; -DOL10T PO; +DOXE150C PO; -DOXE150C2 PO; +HYDR50TA65 PO; -METH-603 PO; +PANT40TA4 PO; +TEMA15CA PO
[2018-08-25 16:57] LABS: CLARITY,URINE CLOUDY (Clear); COLOR,URINE STRAW (Yellow); GLUCOSE, URINE >=1000 mg/dl (Neg); KETONES,URINE NEGATIVE (Neg); LEUKOCYTE ESTERASE ,URINE SMALL (Neg); NITRITES, URINE POSITIVE (Neg); OCCULT BLOOD,URINE NEGATIVE (Neg); PROTEIN,URINE NEGATIVE (Neg)
[2018-08-25 17:02] LABS: UA COLLECTION TYPE CLN CATCH MIDSTREAM
[2018-08-25 17:04] LABS: BACTERIA,URINE 4+ /HPF (Neg); MUCUS STRANDS NONE SEEN /LPF (Neg); RBC,URINE NONE SEEN /HPF (0-2); SQUAMOUS EPITHELIAL CELL,UR MODERATE /LPF (FEW)
[2018-08-25] MEDS ORDERED: clotrimazole 1% vaginal cream 45gm VG STA (17:26)
[2018-08-25] MEDS ORDERED: phenazopyridine 100mg tablet PO ONE (17:30)
[2018-08-25] MEDS ORDERED: acetaminophen 325mg tablet PO ONE (17:30)
[2018-08-25] MEDS ORDERED: FLUC150T5 PO (17:33)
[2018-08-25 17:53] VITALS: BP 142/76
== END 2018-08-25 17:55 | disposition home or self-care (01) ==
LOC: ER 16:17
DX: N89.8 Other specified noninflammatory disorders of vagina (principal); R10.2 Pelvic and perineal pain; R30.0 Dysuria; M54.5 Low back pain; R10.9 Unspecified abdominal pain; E11.9 Type 2 diabetes mellitus without complications; G89.29 Other chronic pain; F41.9 Anxiety disorder, unspecified; F32.9 Major depressive disorder, single episode, unspecified; F11.90 Opioid use, unspecified, uncomplicated; Z86.14 Personal history of Methicillin resistant Staphylococcus aureus infection; Z98.51 Tubal ligation status; Z98.84 Bariatric surgery status; Z59.0 Homelessness; Z79.84 Long term (current) use of oral hypoglycemic drugs; Z79.899 Other long term (current) drug therapy
CPT/HCPCS: 81001; 87077; 87088; 87186; 99284

== ENCOUNTER 2018-10-28 18:03 | Emergency (ER) | payer MEDICAID ==
[~2018-10-28] VITALS: Ht 172.7 cm; Wt 90.9 kg
[~2018-10-28 18:03] MED LIST changes: +FLUC150T5 PO
[2018-10-28 18:41] LABS: BASOPHILS # (AUTO) 0.1 X10'3 (0-0.2); BASOPHILS % (AUTO) 0.8 % (0-1); EOSINOPHILS # (AUTO) 0.1 X10'3 (0-0.9); EOSINOPHILS % (AUTO) 0.9 % (0-6); HEMATOCRIT 30.9 % (35.0-45.0); HEMOGLOBIN 9.5 g/dl (12.0-16.0); LYMPHOCYTES # (AUTO) 1.9 X10'3 (1.1-4.8); LYMPHOCYTES % (AUTO) 21.8 % (21-51); MEAN CORPUSCULAR HEMOGLOBIN 20.2 PG (27.0-31.0); MEAN CORPUSCULAR HGB CONC 30.6 g/dL (33.0-36.5); MEAN CORPUSCULAR VOLUME 66.1 FL (78-98); MEAN PLATELET VOLUME 9.5 FL (7.4-10.4); MONOCYTES # (AUTO) 0.5 X10'3 (0-0.9); MONOCYTES % (AUTO) 5.4 % (2-12); NEUTROPHILS # (AUTO) 6.1 X10'3 (1.8-7.7); NEUTROPHILS % (AUTO) 71.1 % (42-75); PLATELET COUNT 215 X10'3 (140-440); RED BLOOD COUNT 4.67 X10'6 (4.20-5.60); RED CELL DISTRIBUTION WIDTH 22.6 % (11.5-14.5); WHITE BLOOD COUNT 8.6 X10'3 (4.5-11.0)
[2018-10-28 18:42] LABS: CLARITY,URINE SLIGHTLY CLOUDY (Clear); COLOR,URINE YELLOW (Yellow); GLUCOSE, URINE >=1000 mg/dl (Neg); KETONES,URINE NEGATIVE (Neg); LEUKOCYTE ESTERASE ,URINE NEGATIVE (Neg); NITRITES, URINE POSITIVE (Neg); OCCULT BLOOD,URINE NEGATIVE (Neg); PH,URINE 5.5 (4.8-8.0); PROTEIN,URINE NEGATIVE (Neg); UROBILINOGEN,URINE 0.2 E.U/dL (0.2-1.0)
[2018-10-28 18:43] LABS: URINE HCG NEGATIVE (NEG)
[2018-10-28 18:47] LABS: UA COLLECTION TYPE CLN CATCH MIDSTREAM
[2018-10-28 18:57] LABS: ALANINE AMINOTRANSFERASE 24 U/L (12-78); ALBUMIN 3.3 G/DL (3.4-5.0); ALBUMIN/GLOBULIN RATIO 0.7 (1.1-1.5); ALKALINE PHOSPHATASE 124 IU/L (46-116); ANION GAP 11 (8-16); ASPARTATE AMINO TRANSFERASE 21 U/L (10-37); BILIRUBIN,TOTAL 0.3 MG/DL (0.1-1.0); BLOOD UREA NITROGEN 15 MG/DL (7-18); BUN/CREATININE RATIO 14.3 (6.6-38.0); CHLORIDE 100 MMOL/L (99-107); CREATININE 1.05 MG/DL (0.40-0.90); SODIUM 135 MMOL/L (135-145); TOTAL CARBON DIOXIDE 23.7 MMOL/L (24-32); TOTAL PROTEIN 8.2 G/DL (6.4-8.2); eGFR 56 ML/MIN
[2018-10-28 18:58] LABS: BACTERIA,URINE 3+ /HPF (Neg); RBC,URINE NONE SEEN /HPF (0-2); SQUAMOUS EPITHELIAL CELL,UR MANY /LPF (FEW)
--- NOTE | 2018-10-28 18:58 | NUR ---
LAB CALLED AND URINE WAS REJECTED FOR CULTURES.
[2018-10-28 19:01] LABS: GLUCOSE 493 MG/DL (70-104)
[2018-10-28 19:43] LABS: ANISOCYTOSIS 3+; MICROCYTOSIS 2+; PLATELET ESTIMATE NORMAL
[2018-10-28 19:44] LABS: HYPOCHROMASIA 2+
[2018-10-28] MEDS ORDERED: normal saline 1000ML IV soln IVB ONE (20:10)
[2018-10-28] MEDS ORDERED: hydrOXYzine 25 MG tablet PO ONE (20:15)
[2018-10-28] MEDS ORDERED: insulin regular, human 10 units/0.1 ml syringe IV ONE (20:15)
[2018-10-28 20:38] LABS: OCCULT BLOOD STOOL NEGATIVE (Neg)
[2018-10-28 21:14] VITALS: BP 173/90
[2018-10-28] MEDS ORDERED: CEPH500C5 PO (21:25)
[2018-10-28] MEDS ORDERED: famotidine 20mg tablet PO ONE (21:30)
[2018-10-28] MEDS ORDERED: mag hydrox/Alum hydrox/simeth 30ml oral suspension PO ONE (21:30)
[2018-10-28] MEDS ORDERED: LIDOcaine Viscous 15ml cup PO ONE (21:30)
== END 2018-10-28 21:46 | disposition home or self-care (01) ==
LOC: ER 18:03
DX: E11.43 Type 2 diabetes mellitus with diabetic autonomic (poly)neuropathy (principal); K31.84 Gastroparesis; E11.65 Type 2 diabetes mellitus with hyperglycemia; G89.29 Other chronic pain; F41.9 Anxiety disorder, unspecified; F32.9 Major depressive disorder, single episode, unspecified; F11.90 Opioid use, unspecified, uncomplicated; Z86.14 Personal history of Methicillin resistant Staphylococcus aureus infection; Z98.51 Tubal ligation status; Z98.84 Bariatric surgery status; Z59.0 Homelessness; Z88.8 Allergy status to other drugs, medicaments and biological substances; Z79.84 Long term (current) use of oral hypoglycemic drugs; Z79.899 Other long term (current) drug therapy
CPT/HCPCS: 36415; 80053; 81001; 81025; 82272; 82948; 85025; 85610; 96361; 96374; 99284; J1815; J7030; Z7610

== ENCOUNTER 2019-01-04 14:18 | Emergency (ER) | payer MEDICAID ==
[~2019-01-04] VITALS: Ht 172.7 cm; Wt 90.0 kg
[2019-01-04 14:45] LABS: CLARITY,URINE CLEAR (Clear); COLOR,URINE YELLOW (Yellow); GLUCOSE, URINE >=1000 mg/dl (Neg); KETONES,URINE NEGATIVE (Neg); LEUKOCYTE ESTERASE ,URINE NEGATIVE (Neg); NITRITES, URINE POSITIVE (Neg); OCCULT BLOOD,URINE TRACE-INTACT (Neg); PH,URINE 5.5 (4.8-8.0); PROTEIN,URINE TRACE mg/dl (Neg); UROBILINOGEN,URINE 0.2 E.U/dL (0.2-1.0)
[2019-01-04 14:54] LABS: UA COLLECTION TYPE CLN CATCH MIDSTREAM
[2019-01-04 14:55] LABS: BACTERIA,URINE 2+ /HPF (Neg); MUCUS STRANDS FEW /LPF (Neg); RBC,URINE 0-2 /HPF (0-2); SQUAMOUS EPITHELIAL CELL,UR FEW /LPF (FEW); WBC,URINE 20-30 /HPF (0-4)
[2019-01-04] MEDS ORDERED: fluconazole 150mg tablet PO ONE (15:10)
[2019-01-04] MEDS ORDERED: SULF1TAB49 PO (15:18)
[2019-01-04] MEDS ORDERED: FLUC150T PO (15:18)
[2019-01-04] MEDS ORDERED: PHEN-824 PO (15:20)
[2019-01-04 15:36] VITALS: BP 151/78
== END 2019-01-04 15:42 | disposition home or self-care (01) ==
LOC: ER 14:18
DX: N39.0 Urinary tract infection, site not specified (principal); B37.3 Candidiasis of vulva and vagina; E11.9 Type 2 diabetes mellitus without complications; G89.29 Other chronic pain; Z59.0 Homelessness; Z86.14 Personal history of Methicillin resistant Staphylococcus aureus infection; Z98.51 Tubal ligation status; Z98.84 Bariatric surgery status; Z88.8 Allergy status to other drugs, medicaments and biological substances; Z79.899 Other long term (current) drug therapy
CPT/HCPCS: 81001; 87077; 87088; 87186; 99283

== ENCOUNTER 2019-02-07 08:21 | Emergency (ER) | payer MEDICAID ==
[~2019-02-07] VITALS: Ht 172.7 cm; Wt 90.0 kg
[~2019-02-07 08:21] MED LIST changes: +PHEN-824 PO
[2019-02-07 08:23] VITALS: BP 126/79
--- NOTE | 2019-02-07 08:36 | NUR ---
AWAITING ED PROVIDER.
[2019-02-07] MEDS ORDERED: ROBDML PO (09:03)
[2019-02-07] MEDS ORDERED: BENZ-16 PO (09:03)
[2019-02-07] MEDS ORDERED: ALBU18HF2 INH (09:03)
== END 2019-02-07 09:18 | disposition home or self-care (01) ==
LOC: ER 08:21
DX: J20.9 Acute bronchitis, unspecified (principal); F17.210 Nicotine dependence, cigarettes, uncomplicated; E11.9 Type 2 diabetes mellitus without complications; G89.29 Other chronic pain; F41.9 Anxiety disorder, unspecified; F32.9 Major depressive disorder, single episode, unspecified; Z86.14 Personal history of Methicillin resistant Staphylococcus aureus infection; Z98.84 Bariatric surgery status; Z98.51 Tubal ligation status; Z59.0 Homelessness; Z79.899 Other long term (current) drug therapy
CPT/HCPCS: 99283; 99406

== ENCOUNTER 2019-04-07 09:18 | Emergency (ER) | payer MEDICAID ==
[~2019-04-07] VITALS: Ht 172.7 cm; Wt 84.1 kg
[~2019-04-07 09:18] MED LIST changes: +ALBU18HF2 INH
[2019-04-07 09:37] VITALS: BP 97/75
[2019-04-07 10:15] LABS: URINE HCG NEGATIVE (NEG)
[2019-04-07 10:21] LABS: COLOR,URINE YELLOW (Yellow); GLUCOSE, URINE >=1000 mg/dl (Neg); KETONES,URINE 15 mg/dl (Neg); LEUKOCYTE ESTERASE ,URINE TRACE (Neg); NITRITES, URINE NEGATIVE (Neg); OCCULT BLOOD,URINE TRACE-INTACT (Neg); PROTEIN,URINE 100 mg/dl (Neg); UROBILINOGEN,URINE 0.2 E.U/dL (0.2-1.0)
[2019-04-07 10:27] LABS: CLARITY,URINE SLIGHTLY CLOUDY (Clear); UA COLLECTION TYPE CLN CATCH MIDSTREAM
[2019-04-07 10:29] LABS: BACTERIA,URINE FEW /HPF (Neg); MUCUS STRANDS FEW /LPF (Neg); RBC,URINE 0-2 /HPF (0-2); RENAL CELLS, URINE FEW /HPF; SQUAMOUS EPITHELIAL CELL,UR MODERATE /LPF (FEW); TRANSITIONAL EPI CELLS,URINE FEW /HPF
[2019-04-07 10:30] LABS: HYALINE CASTS 0-3 /LPF (NEGATIVE); WBC CLUMPS,URINE FEW /HPF (NEGATIVE)
[2019-04-07] MEDS ORDERED: PHEN-824 PO (11:10)
[2019-04-07] MEDS ORDERED: SULF1TAB49 PO (11:10)
== END 2019-04-07 11:38 | disposition home or self-care (01) ==
LOC: ER 09:18
DX: N39.0 Urinary tract infection, site not specified (principal); R31.9 Hematuria, unspecified; E11.9 Type 2 diabetes mellitus without complications; G89.29 Other chronic pain; F41.9 Anxiety disorder, unspecified; F11.90 Opioid use, unspecified, uncomplicated; Z86.14 Personal history of Methicillin resistant Staphylococcus aureus infection; Z98.51 Tubal ligation status; Z98.0 Intestinal bypass and anastomosis status; Z59.0 Homelessness; Z79.899 Other long term (current) drug therapy
CPT/HCPCS: 81001; 81025; 87088; 99284

== ENCOUNTER 2019-08-19 17:37 | Emergency (ER) | payer MEDICAID ==
[~2019-08-19] VITALS: Ht 172.7 cm; Wt 105.0 kg
[2019-08-19 18:15] LABS: ALANINE AMINOTRANSFERASE 24 U/L (12-78); ALBUMIN 3.2 G/DL (3.4-5.0); ALBUMIN/GLOBULIN RATIO 0.7 (1.1-1.5); ALKALINE PHOSPHATASE 97 IU/L (46-116); ANION GAP 13 (8-16); ASPARTATE AMINO TRANSFERASE 25 U/L (10-37); BILIRUBIN,TOTAL 0.1 MG/DL (0.1-1.0); BLOOD UREA NITROGEN 21 MG/DL (7-18); BUN/CREATININE RATIO 17.5 (6.6-38.0); CALCIUM 9.1 MG/DL (8.5-10.1); CHLORIDE 103 MMOL/L (99-107); GLUCOSE 152 MG/DL (70-104); POTASSIUM 4.5 MMOL/L (3.5-5.1); SODIUM 139 MMOL/L (135-145); TOTAL CARBON DIOXIDE 23.2 MMOL/L (24-32); TOTAL PROTEIN 7.8 G/DL (6.4-8.2); eGFR 48 ML/MIN
[2019-08-19 18:23] LABS: BASOPHILS # (AUTO) 0.1 X10'3 (0-0.2); BASOPHILS % (AUTO) 0.9 % (0-1); EOSINOPHILS # (AUTO) 0.1 X10'3 (0-0.9); EOSINOPHILS % (AUTO) 1.4 % (0-6); HEMOGLOBIN 7.4 g/dl (12.0-16.0); LYMPHOCYTES # (AUTO) 1.5 X10'3 (1.1-4.8); LYMPHOCYTES % (AUTO) 25.4 % (21-51); MEAN CORPUSCULAR HEMOGLOBIN 18.6 PG (27.0-31.0); MEAN CORPUSCULAR HGB CONC 31.9 g/dL (33.0-36.5); MEAN PLATELET VOLUME 8.5 FL (7.4-10.4); MONOCYTES # (AUTO) 0.5 X10'3 (0-0.9); MONOCYTES % (AUTO) 9.3 % (2-12); NEUTROPHILS # (AUTO) 3.7 X10'3 (1.8-7.7); PLATELET COUNT 192 X10'3 (140-440); RED BLOOD COUNT 3.96 X10'6 (4.20-5.60); WHITE BLOOD COUNT 5.8 X10'3 (4.5-11.0)
[2019-08-19 18:24] LABS: RED CELL DISTRIBUTION WIDTH 19.7 % (11.5-14.5)
[2019-08-19 18:57] LABS: ANISOCYTOSIS 3+; PLATELET ESTIMATE NORMAL
[2019-08-19 18:58] LABS: ELLIPTOCYTES 1+; HYPOCHROMASIA 2+; MICROCYTOSIS 2+
[2019-08-19 19:28] VITALS: BP 116/73
== END 2019-08-19 19:43 | disposition home or self-care (01) ==
LOC: ER 17:38
DX: D64.9 Anemia, unspecified (principal); R53.1 Weakness; R42 Dizziness and giddiness; E11.9 Type 2 diabetes mellitus without complications; G89.29 Other chronic pain; F41.9 Anxiety disorder, unspecified; F32.9 Major depressive disorder, single episode, unspecified; F11.90 Opioid use, unspecified, uncomplicated; Z87.440 Personal history of urinary (tract) infections; Z86.14 Personal history of Methicillin resistant Staphylococcus aureus infection; Z98.51 Tubal ligation status; Z98.890 Other specified postprocedural states; Z59.0 Homelessness; Z79.899 Other long term (current) drug therapy
CPT/HCPCS: 36415; 80053; 85025; 99283

== ENCOUNTER 2019-09-16 12:20 | Outpatient (CLI) | payer MEDICAID | END 2019-09-16 23:59 | disposition home or self-care (01) | LOC: VAS 12:20 | DX: M79.89 Other specified soft tissue disorders (principal) | CPT/HCPCS: 93971 ==

== ENCOUNTER 2019-10-21 18:02 | Emergency (ER) | payer MEDICAID ==
[~2019-10-21] VITALS: Ht 172.7 cm; Wt 117.3 kg
[~2019-10-21 18:02] MED LIST changes: -PANT40TA4 PO; +PANT40TA54 PO
[2019-10-21 18:28] VITALS: BP 121/91
[2019-10-21 18:48] LABS: CLARITY,URINE CLOUDY (Clear); COLOR,URINE YELLOW (Yellow); GLUCOSE, URINE 100 mg/dl (Neg); KETONES,URINE NEGATIVE (Neg); LEUKOCYTE ESTERASE ,URINE MODERATE (Neg); NITRITES, URINE NEGATIVE (Neg); OCCULT BLOOD,URINE NEGATIVE (Neg); PH,URINE 5.5 (4.8-8.0); PROTEIN,URINE TRACE mg/dl (Neg)
[2019-10-21 19:04] LABS: UA COLLECTION TYPE CLN CATCH MIDSTREAM
[2019-10-21 19:05] LABS: BACTERIA,URINE 2+ /HPF (Neg); MUCUS STRANDS NONE SEEN /LPF (Neg); RBC,URINE NONE SEEN /HPF (0-2); RENAL CELLS, URINE FEW /HPF; SQUAMOUS EPITHELIAL CELL,UR FEW /LPF (FEW); WBC CLUMPS,URINE MODERATE /HPF (NEGATIVE); WBC,URINE TNTC /HPF (0-4)
[2019-10-21] MEDS ORDERED: CefTRIAXone 1000mg IM Kit (w/lidocaine diluent) IM ONE (21:15)
[2019-10-21] MEDS ORDERED: amitriptyline 50mg tablet PO SCH (21:15)
[2019-10-21] MEDS ORDERED: ketorolac tromethamine 15mg/ml inj. IM ONE (21:15)
[2019-10-21] MEDS ORDERED: SULF1TAB49 PO (21:26)
== END 2019-10-21 21:44 | disposition home or self-care (01) ==
LOC: ER 18:04
DX: N39.0 Urinary tract infection, site not specified (principal); M54.89 Other dorsalgia; R10.84 Generalized abdominal pain; E11.9 Type 2 diabetes mellitus without complications; G89.29 Other chronic pain; F41.9 Anxiety disorder, unspecified; F32.9 Major depressive disorder, single episode, unspecified; F11.90 Opioid use, unspecified, uncomplicated; Z87.440 Personal history of urinary (tract) infections; Z86.14 Personal history of Methicillin resistant Staphylococcus aureus infection; Z98.51 Tubal ligation status; Z98.890 Other specified postprocedural states; Z59.0 Homelessness; Z88.8 Allergy status to other drugs, medicaments and biological substances; Z79.2 Long term (current) use of antibiotics; Z79.899 Other long term (current) drug therapy
CPT/HCPCS: 81001; 87088; 96372; 99284; J0696; J1885

== ENCOUNTER 2020-01-10 11:10 | Emergency (ER) | payer MEDICAID ==
[~2020-01-10] VITALS: Ht 177.8 cm; Wt 135.0 kg
[2020-01-10] MEDS ORDERED: methylPREDNISolone sod succ 125mg/2ml vial IM ONE (11:40)
[2020-01-10] MEDS ORDERED: diphenhydrAMINE 50 mg/ml inj IM ONE (11:40)
--- NOTE | 2020-01-10 12:10 | NUR ---
TC TO [facility] [phone], [facility]. TRANSPORTATION WILL BE ON THE WAY TO [facility] PATIENT.
[2020-01-10 12:17] VITALS: BP 119/71
== END 2020-01-10 12:21 | disposition home or self-care (01) ==
LOC: ER 11:11
DX: R22.0 Localized swelling, mass and lump, head (principal); E11.9 Type 2 diabetes mellitus without complications; G89.29 Other chronic pain; F41.9 Anxiety disorder, unspecified; F32.9 Major depressive disorder, single episode, unspecified; F11.90 Opioid use, unspecified, uncomplicated; Z87.440 Personal history of urinary (tract) infections; Z86.14 Personal history of Methicillin resistant Staphylococcus aureus infection; Z98.51 Tubal ligation status; Z98.890 Other specified postprocedural states; Z59.0 Homelessness; Z88.8 Allergy status to other drugs, medicaments and biological substances; Z79.2 Long term (current) use of antibiotics; Z79.899 Other long term (current) drug therapy
CPT/HCPCS: 96372; 99284; J1200; J2930

== ENCOUNTER 2020-03-17 10:29 | Emergency (ER) | payer MEDICAID ==
[~2020-03-17] VITALS: Ht 177.8 cm; Wt 127.3 kg
[~2020-03-17 10:29] MED LIST changes: +IBUP-1985 PO; +LIDO700A32 TOP
[2020-03-17 10:49] VITALS: BP 162/101
--- NOTE | 2020-03-17 12:41 | NUR ---
PA at bedside, requesting "Toradol shot"
[2020-03-17] MEDS ORDERED: ketorolac tromethamine 15mg/ml inj. IM ONE (12:45)
== END 2020-03-17 13:34 | disposition home or self-care (01) ==
LOC: ER 10:30
DX: G89.29 Other chronic pain (principal); M54.5 Low back pain; E11.9 Type 2 diabetes mellitus without complications; F11.90 Opioid use, unspecified, uncomplicated; Z87.440 Personal history of urinary (tract) infections; Z86.14 Personal history of Methicillin resistant Staphylococcus aureus infection; Z98.51 Tubal ligation status; Z98.84 Bariatric surgery status; Z59.0 Homelessness; Z88.8 Allergy status to other drugs, medicaments and biological substances; Z79.899 Other long term (current) drug therapy
CPT/HCPCS: 96372; 99283; J1885

== ENCOUNTER 2020-04-20 09:59 | Emergency (ER) | payer MEDICAID ==
[~2020-04-20] VITALS: Ht 175.3 cm; Wt 127.3 kg
[2020-04-20 10:09] VITALS: BP 145/83
[2020-04-20] MEDS ORDERED: LORazepam 0.5 MG tablet PO PRN (10:45)
== END 2020-04-20 11:58 | disposition home or self-care (01) ==
LOC: ER 09:59
DX: F41.9 Anxiety disorder, unspecified (principal); R07.89 Other chest pain; E11.9 Type 2 diabetes mellitus without complications; G89.29 Other chronic pain; F32.9 Major depressive disorder, single episode, unspecified; F11.90 Opioid use, unspecified, uncomplicated; Z87.440 Personal history of urinary (tract) infections; Z86.14 Personal history of Methicillin resistant Staphylococcus aureus infection; Z98.51 Tubal ligation status; Z98.890 Other specified postprocedural states; Z59.0 Homelessness; Z88.8 Allergy status to other drugs, medicaments and biological substances; Z79.899 Other long term (current) drug therapy
CPT/HCPCS: 36415; 84484; 93005; 99284

== ENCOUNTER 2020-05-23 14:24 | Emergency (ER) | payer MEDICAID ==
[~2020-05-23] VITALS: Ht 177.8 cm; Wt 179.5 kg
[2020-05-23 16:43] VITALS: BP 129/82
[2020-05-23] MEDS ORDERED: LIDOcaine 5% patch TP STA (19:50)
[2020-05-23] MEDS ORDERED: ketorolac tromethamine 15mg/ml inj. IM ONE (19:50)
[2020-05-23] MEDS ORDERED: LIDO700A32 TOP (19:52)
[2020-05-23] MEDS ORDERED: amitriptyline 25mg tablet PO STA (19:59)
== END 2020-05-23 20:13 | disposition home or self-care (01) ==
LOC: ER 14:25
DX: M54.42 Lumbago with sciatica, left side (principal); E11.9 Type 2 diabetes mellitus without complications; G89.29 Other chronic pain; F41.9 Anxiety disorder, unspecified; F32.9 Major depressive disorder, single episode, unspecified; Z87.440 Personal history of urinary (tract) infections; Z86.14 Personal history of Methicillin resistant Staphylococcus aureus infection; Z98.51 Tubal ligation status; Z98.890 Other specified postprocedural states; Z59.0 Homelessness; Z88.8 Allergy status to other drugs, medicaments and biological substances; Z79.899 Other long term (current) drug therapy; Z79.2 Long term (current) use of antibiotics
CPT/HCPCS: 96372; 99283; J1885

== ENCOUNTER 2020-08-27 09:24 | Emergency (ER) | payer MEDICAID ==
[~2020-08-27] VITALS: Ht 177.8 cm; Wt 126.7 kg
[2020-08-27 09:30] VITALS: BP 134/83
[2020-08-27 10:09] LABS: CLARITY,URINE SLIGHTLY CLOUDY (Clear); COLOR,URINE YELLOW (Yellow); GLUCOSE, URINE >=1000 mg/dl (Neg); KETONES,URINE NEGATIVE (Neg); LEUKOCYTE ESTERASE ,URINE NEGATIVE (Neg); NITRITES, URINE NEGATIVE (Neg); OCCULT BLOOD,URINE NEGATIVE (Neg); PH,URINE 5.5 (4.8-8.0); PROTEIN,URINE TRACE mg/dl (Neg); UROBILINOGEN,URINE 0.2 E.U/dL (0.2-1.0)
[2020-08-27 10:14] LABS: UA COLLECTION TYPE CLN CATCH MIDSTREAM
[2020-08-27 10:18] LABS: BACTERIA,URINE 1+ /HPF (Neg); RBC,URINE 0-2 /HPF (0-2); SQUAMOUS EPITHELIAL CELL,UR MANY /LPF (FEW); WBC,URINE 0-4 /HPF (0-4)
[2020-08-27 10:22] LABS: URINE HCG NEGATIVE (NEG)
[2020-08-27] MEDS ORDERED: ketorolac trometh. 30mg/ml inj. IM ONE (10:45)
== END 2020-08-27 11:09 | disposition home or self-care (01) ==
LOC: ER 09:25
DX: M54.5 Low back pain (principal); R53.1 Weakness; R53.83 Other fatigue; E11.9 Type 2 diabetes mellitus without complications; G89.29 Other chronic pain; F41.9 Anxiety disorder, unspecified; F32.9 Major depressive disorder, single episode, unspecified; Z87.440 Personal history of urinary (tract) infections; Z86.14 Personal history of Methicillin resistant Staphylococcus aureus infection; Z98.51 Tubal ligation status; Z98.890 Other specified postprocedural states; Z59.0 Homelessness; Z88.8 Allergy status to other drugs, medicaments and biological substances; Z79.2 Long term (current) use of antibiotics; Z79.899 Other long term (current) drug therapy
CPT/HCPCS: 81001; 81025; 96372; 99283; J1885

== ENCOUNTER 2020-10-30 13:50 | Emergency (ER) | payer MEDICAID ==
[~2020-10-30] VITALS: Ht 177.8 cm; Wt 127.3 kg
[2020-10-30 14:09] VITALS: BP 162/92
[2020-10-30 14:37] LABS: CLARITY,URINE CLOUDY (Clear); COLOR,URINE YELLOW (Yellow); GLUCOSE, URINE >=1000 mg/dl (Neg); PROTEIN,URINE TRACE mg/dl (Neg); UA COLLECTION TYPE CLN CATCH MIDSTREAM
[2020-10-30 14:38] LABS: KETONES,URINE NEGATIVE (Neg); LEUKOCYTE ESTERASE ,URINE TRACE (Neg); NITRITES, URINE NEGATIVE (Neg); OCCULT BLOOD,URINE LARGE (Neg); UROBILINOGEN,URINE 0.2 E.U/dL (0.2-1.0)
[2020-10-30 14:42] LABS: BACTERIA,URINE 4+ /HPF (Neg); MUCUS STRANDS FEW /LPF (Neg); SQUAMOUS EPITHELIAL CELL,UR FEW /LPF (FEW); WBC,URINE 20-30 /HPF (0-4)
[2020-10-30 14:43] LABS: TRANSITIONAL EPI CELLS,URINE FEW /HPF
[2020-10-30] MEDS ORDERED: SULF1TAB49 PO (15:00)
== END 2020-10-30 15:07 | disposition home or self-care (01) ==
LOC: ER 13:51
DX: N39.0 Urinary tract infection, site not specified (principal); E11.9 Type 2 diabetes mellitus without complications; F41.9 Anxiety disorder, unspecified; G89.29 Other chronic pain; M54.9 Dorsalgia, unspecified; Z59.0 Homelessness; F11.10 Opioid abuse, uncomplicated; Z88.1 Allergy status to other antibiotic agents; Z88.8 Allergy status to other drugs, medicaments and biological substances
CPT/HCPCS: 81001; 87077; 87088; 87186; 99283

== ENCOUNTER 2020-11-18 08:15 | Emergency (ER) | payer MEDICAID ==
[~2020-11-18] VITALS: Ht 177.8 cm; Wt 124.0 kg
[2020-11-18] MEDS ORDERED: ketorolac tromethamine 15mg/ml inj. IM ONE (08:55)
[2020-11-18 08:58] LABS: BASOPHILS % (AUTO) 0.2 % (0-1); EOSINOPHILS # (AUTO) 0.1 X10'3 (0-0.9); EOSINOPHILS % (AUTO) 1.8 % (0-6); HEMATOCRIT 39.8 % (35.0-45.0); HEMOGLOBIN 13.1 g/dl (12.0-16.0); LYMPHOCYTES # (AUTO) 1.7 X10'3 (1.1-4.8); LYMPHOCYTES % (AUTO) 22.7 % (21-51); MEAN CORPUSCULAR HEMOGLOBIN 27.3 PG (27.0-31.0); MEAN CORPUSCULAR VOLUME 82.9 FL (78-98); MEAN PLATELET VOLUME 8.7 FL (7.4-10.4); MONOCYTES # (AUTO) 0.3 X10'3 (0-0.9); MONOCYTES % (AUTO) 4.6 % (2-12); NEUTROPHILS # (AUTO) 5.3 X10'3 (1.8-7.7); NEUTROPHILS % (AUTO) 70.7 % (42-75); PLATELET COUNT 247 X10'3 (140-440); RED CELL DISTRIBUTION WIDTH 16.8 % (11.5-14.5); WHITE BLOOD COUNT 7.5 X10'3 (4.5-11.0)
[2020-11-18 09:03] LABS: URINE HCG NEGATIVE (NEG)
[2020-11-18 09:04] LABS: UA COLLECTION TYPE CLN CATCH MIDSTREAM
[2020-11-18 09:05] LABS: CLARITY,URINE CLOUDY (Clear); COLOR,URINE YELLOW (Yellow); GLUCOSE, URINE >=1000 mg/dl (Neg); KETONES,URINE NEGATIVE (Neg); PROTEIN,URINE TRACE mg/dl (Neg)
[2020-11-18 09:06] LABS: LEUKOCYTE ESTERASE ,URINE NEGATIVE (Neg); NITRITES, URINE POSITIVE (Neg); OCCULT BLOOD,URINE LARGE (Neg); UROBILINOGEN,URINE 0.2 E.U/dL (0.2-1.0)
[2020-11-18 09:12] LABS: ALANINE AMINOTRANSFERASE 20 U/L (12-78); ALBUMIN 3.5 G/DL (3.4-5.0); ALBUMIN/GLOBULIN RATIO 0.7 (1.1-1.5); ALKALINE PHOSPHATASE 79 IU/L (46-116); ANION GAP 16 (8-16); ASPARTATE AMINO TRANSFERASE 22 U/L (10-37); BILIRUBIN,TOTAL 0.3 MG/DL (0.1-1.0); BLOOD UREA NITROGEN 19 MG/DL (7-18); BUN/CREATININE RATIO 16.1 (6.6-38.0); CALCIUM 8.9 MG/DL (8.5-10.1); CHLORIDE 100 MMOL/L (99-107); CREATININE 1.18 MG/DL (0.40-0.90); GLUCOSE 199 MG/DL (70-104); LIPASE 164 U/L (73-393); POTASSIUM 4.8 MMOL/L (3.5-5.1); SODIUM 137 MMOL/L (135-145); TOTAL CARBON DIOXIDE 21.5 MMOL/L (24-32); TOTAL PROTEIN 8.3 G/DL (6.4-8.2); eGFR 49 ML/MIN
[2020-11-18] MEDS ORDERED: CefTRIAXone 1000mg IM Kit (w/lidocaine diluent) IM ONE (09:15)
[2020-11-18 09:18] LABS: BACTERIA,URINE 3+ /HPF (Neg); RBC,URINE TNTC /HPF (0-2); SQUAMOUS EPITHELIAL CELL,UR FEW /LPF (FEW)
[2020-11-18] MEDS ORDERED: IBUP-1984 PO (10:55)
[2020-11-18] MEDS ORDERED: SULF1TAB45 PO (10:55)
[2020-11-18 11:12] VITALS: BP 143/90
== END 2020-11-18 11:13 | disposition home or self-care (01) ==
LOC: ER 08:16
DX: N39.0 Urinary tract infection, site not specified (principal); N20.0 Calculus of kidney; R30.9 Painful micturition, unspecified; E11.9 Type 2 diabetes mellitus without complications; G89.29 Other chronic pain; F41.9 Anxiety disorder, unspecified; F32.9 Major depressive disorder, single episode, unspecified; Z86.14 Personal history of Methicillin resistant Staphylococcus aureus infection; Z87.440 Personal history of urinary (tract) infections; Z98.51 Tubal ligation status; Z98.890 Other specified postprocedural states; Z59.00 Homelessness unspecified; Z88.8 Allergy status to other drugs, medicaments and biological substances; Z79.2 Long term (current) use of antibiotics; Z79.899 Other long term (current) drug therapy
CPT/HCPCS: 36415; 74176; 80053; 81001; 81025; 83690; 85025; 87077; 87088; 87186; 96372; 99284; J0696; J1885

== ENCOUNTER 2021-03-04 12:10 | Emergency (ER) | payer MEDICAID ==
[~2021-03-04] VITALS: Ht 177.8 cm; Wt 126.4 kg
[2021-03-04 12:20] VITALS: BP 109/84
[2021-03-04 12:53] LABS: CLARITY,URINE SLIGHTLY CLOUDY (Clear); GLUCOSE, URINE >=1000 mg/dl (Neg); KETONES,URINE NEGATIVE (Neg); LEUKOCYTE ESTERASE ,URINE NEGATIVE (Neg); NITRITES, URINE POSITIVE (Neg); OCCULT BLOOD,URINE NEGATIVE (Neg); PH,URINE 5.5 (4.8-8.0); PROTEIN,URINE NEGATIVE (Neg); UROBILINOGEN,URINE 0.2 E.U/dL (0.2-1.0)
[2021-03-04 13:00] LABS: COLOR,URINE STRAW (Yellow); UA COLLECTION TYPE CLN CATCH MIDSTREAM
[2021-03-04 13:02] LABS: SQUAMOUS EPITHELIAL CELL,UR MODERATE /LPF (FEW)
[2021-03-04 13:04] LABS: BACTERIA,URINE 4+ /HPF (Neg); RBC,URINE 0-2 /HPF (0-2); WBC CLUMPS,URINE MODERATE /HPF (NEGATIVE)
[2021-03-04 13:05] LABS: MUCUS STRANDS FEW /LPF (Neg)
[2021-03-04] MEDS ORDERED: SULF1TAB49 PO (13:21)
== END 2021-03-04 13:34 | disposition home or self-care (01) ==
LOC: ER 12:11
DX: N39.0 Urinary tract infection, site not specified (principal); E11.9 Type 2 diabetes mellitus without complications; G89.29 Other chronic pain; F11.90 Opioid use, unspecified, uncomplicated; Z98.84 Bariatric surgery status; Z98.51 Tubal ligation status; Z59.00 Homelessness unspecified; Z88.8 Allergy status to other drugs, medicaments and biological substances; Z79.84 Long term (current) use of oral hypoglycemic drugs; Z79.899 Other long term (current) drug therapy
CPT/HCPCS: 81001; 87077; 87088; 87186; 99283

== ENCOUNTER 2022-01-24 16:47 | Emergency (ER) | payer MEDICAID ==
[~2022-01-24] VITALS: Ht 177.8 cm; Wt 121.0 kg
[~2022-01-24 16:47] MED LIST changes: +FLUC150T46 PO; -FLUC150T5 PO
[2022-01-24 16:51] VITALS: BP 118/82
[2022-01-24 17:49] LABS: BASOPHILS # (AUTO) 0.1 X10'3 (0-0.2); BASOPHILS % (AUTO) 0.8 % (0-1); EOSINOPHILS # (AUTO) 0.2 X10'3 (0-0.9); EOSINOPHILS % (AUTO) 1.3 % (0-6); HEMATOCRIT 37.3 % (35.0-45.0); HEMOGLOBIN 11.8 g/dl (12.0-16.0); LYMPHOCYTES # (AUTO) 2.5 X10'3 (1.1-4.8); LYMPHOCYTES % (AUTO) 18.8 % (21-51); MEAN CORPUSCULAR HEMOGLOBIN 21.1 PG (27.0-31.0); MEAN CORPUSCULAR HGB CONC 31.6 g/dL (33.0-36.5); MEAN CORPUSCULAR VOLUME 66.8 FL (78-98); MEAN PLATELET VOLUME 8.3 FL (7.4-10.4); MONOCYTES # (AUTO) 0.9 X10'3 (0-0.9); MONOCYTES % (AUTO) 6.4 % (2-12); NEUTROPHILS # (AUTO) 9.8 X10'3 (1.8-7.7); NEUTROPHILS % (AUTO) 72.7 % (42-75); PLATELET COUNT 387 X10'3 (140-440); RED BLOOD COUNT 5.58 X10'6 (4.20-5.60); RED CELL DISTRIBUTION WIDTH 20.6 % (11.5-14.5); WHITE BLOOD COUNT 13.5 X10'3 (4.5-11.0)
[2022-01-24 18:06] LABS: ALANINE AMINOTRANSFERASE 175 U/L (12-78); ALBUMIN 3.6 G/DL (3.4-5.0); ALBUMIN/GLOBULIN RATIO 0.8 (1.1-1.5); ALKALINE PHOSPHATASE 188 IU/L (46-116); ANION GAP 15 (8-16); ASPARTATE AMINO TRANSFERASE 87 U/L (10-37); BILIRUBIN,TOTAL 0.2 MG/DL (0.1-1.0); BLOOD UREA NITROGEN 12 MG/DL (7-18); BUN/CREATININE RATIO 8.3 (6.6-38.0); CALCIUM 9.6 MG/DL (8.5-10.1); CHLORIDE 98 MMOL/L (99-107); CREATININE 1.44 MG/DL (0.40-0.90); GLUCOSE 192 MG/DL (70-104); LIPASE 130 U/L (73-393); POTASSIUM 4.3 MMOL/L (3.5-5.1); SODIUM 134 MMOL/L (135-145); TOTAL CARBON DIOXIDE 20.9 MMOL/L (24-32); TOTAL PROTEIN 8.4 G/DL (6.4-8.2); eGFR 39 ML/MIN
[2022-01-24 18:23] LABS: ANISOCYTOSIS 3+; MICROCYTOSIS 2+; PLATELET ESTIMATE NORMAL
[2022-01-24 18:24] LABS: ELLIPTOCYTES 1+; LARGE PLATELETS FEW; POLYCHROMASIA FEW
== END 2022-01-24 21:23 | disposition left against medical advice (07) ==
LOC: ER 16:48
DX: N39.0 Urinary tract infection, site not specified (principal); Z53.21 Procedure and treatment not carried out due to patient leaving prior to being seen by health care provider
CPT/HCPCS: 36415; 80053; 82948; 83690; 85008; 85025

== ENCOUNTER 2022-01-27 03:40 | Emergency (ER) | payer MEDICAID ==
[~2022-01-27] VITALS: Ht 177.8 cm; Wt 114.6 kg
[2022-01-27 03:42] VITALS: BP 104/62
[2022-01-27 04:37] LABS: CLARITY,URINE CLOUDY (Clear); COLOR,URINE YELLOW (Yellow); GLUCOSE, URINE 500 mg/dl (Neg); KETONES,URINE NEGATIVE (Neg); LEUKOCYTE ESTERASE ,URINE MODERATE (Neg); NITRITES, URINE NEGATIVE (Neg); OCCULT BLOOD,URINE MODERATE (Neg); PH,URINE 6.5 (4.8-8.0); PROTEIN,URINE NEGATIVE (Neg)
[2022-01-27 04:41] LABS: UA COLLECTION TYPE CLN CATCH MIDSTREAM
[2022-01-27 04:42] LABS: SQUAMOUS EPITHELIAL CELL,UR MANY /LPF (FEW)
[2022-01-27 04:43] LABS: BACTERIA,URINE 4+ /HPF (Neg)
[2022-01-27 04:44] LABS: RBC,URINE 50-100 /HPF (0-2)
[2022-01-27 04:45] LABS: WBC CLUMPS,URINE MANY /HPF (NEGATIVE); WBC,URINE 50-100 /HPF (0-4)
== END 2022-01-27 11:19 | disposition left against medical advice (07) ==
LOC: ER 03:40
DX: N39.0 Urinary tract infection, site not specified (principal); Z53.21 Procedure and treatment not carried out due to patient leaving prior to being seen by health care provider
CPT/HCPCS: 81001

== ENCOUNTER 2022-03-14 17:02 | Emergency (ER) | payer MEDICAID ==
[~2022-03-14] VITALS: Ht 175.3 cm; Wt 126.4 kg
[2022-03-14 17:08] VITALS: BP 141/90
[2022-03-14] MEDS ORDERED: LIDOcaine 1% 30ml preserv. free vial SQ STA (17:58)
[2022-03-14] MEDS ORDERED: cephalexin 500mg capsule PO ONE (18:00)
[2022-03-14] MEDS ORDERED: CEPH500C2 PO (19:00)
== END 2022-03-14 19:11 | disposition home or self-care (01) ==
LOC: ER 17:04
DX: T16.1XXA Foreign body in right ear, initial encounter (principal); E11.9 Type 2 diabetes mellitus without complications; G89.29 Other chronic pain; F41.9 Anxiety disorder, unspecified; F32.9 Major depressive disorder, single episode, unspecified; Z86.14 Personal history of Methicillin resistant Staphylococcus aureus infection; Z59.00 Homelessness unspecified; Z98.890 Other specified postprocedural states; Z98.51 Tubal ligation status; Z88.8 Allergy status to other drugs, medicaments and biological substances; Z79.899 Other long term (current) drug therapy; X58.XXXA Exposure to other specified factors, initial encounter; Y93.89 Activity, other specified; Y92.488 Other paved roadways as the place of occurrence of the external cause; Y99.8 Other external cause status
CPT/HCPCS: 99284; A6449

== ENCOUNTER 2022-03-27 08:04 | Emergency (ER) | payer MEDICAID ==
[~2022-03-27] VITALS: Ht 177.8 cm; Wt 125.5 kg
[2022-03-27] MEDS ORDERED: albuterol 2.5 MG/3 ML nebule NEB ONE (08:50)
[2022-03-27] MEDS ORDERED: diphenhydrAMINE 25mg capsule PO ONE (08:50)
[2022-03-27] MEDS ORDERED: benzonatate 100mg capsule PO ONE (08:50)
[2022-03-27] MEDS ORDERED: acetaminophen 325mg tablet PO ONE (09:10)
[2022-03-27 09:13] VITALS: BP 120/79
[2022-03-27] MEDS ORDERED: BENZ-38 PO (10:42)
== END 2022-03-27 11:13 | disposition home or self-care (01) ==
LOC: ER 08:04
DX: B34.9 Viral infection, unspecified (principal); Z20.822 Contact with and (suspected) exposure to COVID-19; E11.9 Type 2 diabetes mellitus without complications; G89.29 Other chronic pain; F41.9 Anxiety disorder, unspecified; Z86.14 Personal history of Methicillin resistant Staphylococcus aureus infection; F17.200 Nicotine dependence, unspecified, uncomplicated; Z88.8 Allergy status to other drugs, medicaments and biological substances; Z79.899 Other long term (current) drug therapy; Z79.1 Long term (current) use of non-steroidal anti-inflammatories (NSAID); Z79.2 Long term (current) use of antibiotics
CPT/HCPCS: 71045; 87502; 87503; 87635; 94640; 99284; C9803; Q0163; 94760

== ENCOUNTER 2022-05-03 06:11 | Emergency (ER) | payer MEDICAID, OTHER ==
[~2022-05-03] VITALS: Ht 177.8 cm; Wt 132.0 kg
[2022-05-03 06:16] VITALS: BP 122/80
[2022-05-03] MEDS ORDERED: CEPH250T PO (15:17)
== END 2022-05-03 07:12 | disposition left against medical advice (07) ==
LOC: ER 06:11
DX: M25.561 Pain in right knee (principal); Z53.21 Procedure and treatment not carried out due to patient leaving prior to being seen by health care provider; W10.9XXA Fall (on) (from) unspecified stairs and steps, initial encounter; Y93.89 Activity, other specified; Y92.89 Other specified places as the place of occurrence of the external cause; Y99.8 Other external cause status
CPT/HCPCS: 99281

== ENCOUNTER 2022-05-03 13:15 | Emergency (ER) | payer MEDICAID, OTHER ==
[~2022-05-03] VITALS: Ht 177.8 cm; Wt 131.0 kg
[2022-05-03 14:09] VITALS: BP 130/78
[2022-05-03 15:00] LABS: COLOR,URINE YELLOW (Yellow); GLUCOSE, URINE NEGATIVE (Neg); KETONES,URINE NEGATIVE (Neg); LEUKOCYTE ESTERASE ,URINE LARGE (Neg); NITRITES, URINE POSITIVE (Neg); OCCULT BLOOD,URINE TRACE-INTACT (Neg); PH,URINE 5.5 (4.8-8.0); PROTEIN,URINE NEGATIVE (Neg); UROBILINOGEN,URINE 0.2 E.U/dL (0.2-1.0)
[2022-05-03 15:03] LABS: CLARITY,URINE CLOUDY (Clear); UA COLLECTION TYPE CLN CATCH MIDSTREAM
[2022-05-03 15:12] LABS: WBC,URINE 20-30 /HPF (0-4)
[2022-05-03 15:13] LABS: BACTERIA,URINE 4+ /HPF (Neg); SQUAMOUS EPITHELIAL CELL,UR MANY /LPF (FEW); TRANSITIONAL EPI CELLS,URINE FEW /HPF
[2022-05-03] MEDS ORDERED: CEPH250T PO (15:17)
== END 2022-05-03 15:18 | disposition home or self-care (01) ==
LOC: ER 13:15
DX: M25.561 Pain in right knee (principal); N39.0 Urinary tract infection, site not specified; E11.9 Type 2 diabetes mellitus without complications; G89.29 Other chronic pain; F41.9 Anxiety disorder, unspecified; F32.9 Major depressive disorder, single episode, unspecified; Z98.51 Tubal ligation status; Z98.890 Other specified postprocedural states; Z86.14 Personal history of Methicillin resistant Staphylococcus aureus infection; Z88.8 Allergy status to other drugs, medicaments and biological substances; Z79.899 Other long term (current) drug therapy; Z79.84 Long term (current) use of oral hypoglycemic drugs; W10.8XXA Fall (on) (from) other stairs and steps, initial encounter; Y93.89 Activity, other specified; Y92.89 Other specified places as the place of occurrence of the external cause; Y99.8 Other external cause status
CPT/HCPCS: 73564; 81001; 99284

== ENCOUNTER 2022-07-05 15:49 | Emergency (ER) | payer MEDICAID, OTHER ==
[2022-07-06] MEDS ORDERED: CEPH250T PO (09:03)
== END 2022-07-05 18:32 | disposition left against medical advice (07) ==
LOC: ER 15:50
DX: N39.0 Urinary tract infection, site not specified (principal); Z53.21 Procedure and treatment not carried out due to patient leaving prior to being seen by health care provider

== ENCOUNTER 2022-07-06 08:16 | Emergency (ER) | payer MEDICAID ==
[~2022-07-06] VITALS: Ht 177.8 cm; Wt 124.1 kg
[2022-07-06 08:19] VITALS: BP 176/115
[2022-07-06 08:48] LABS: CLARITY,URINE SLIGHTLY CLOUDY (Clear); COLOR,URINE STRAW (Yellow); GLUCOSE, URINE NEGATIVE (Neg); KETONES,URINE NEGATIVE (Neg); LEUKOCYTE ESTERASE ,URINE LARGE (Neg); NITRITES, URINE POSITIVE (Neg); OCCULT BLOOD,URINE NEGATIVE (Neg); PH,URINE 7.5 (4.8-8.0); PROTEIN,URINE NEGATIVE (Neg); UROBILINOGEN,URINE 0.2 E.U/dL (0.2-1.0)
[2022-07-06 08:55] LABS: UA COLLECTION TYPE CLN CATCH MIDSTREAM
[2022-07-06 08:56] LABS: WBC,URINE 20-30 /HPF (0-4)
[2022-07-06 08:57] LABS: BACTERIA,URINE 4+ /HPF (Neg); MUCUS STRANDS NONE SEEN /LPF (Neg); RBC,URINE NONE SEEN /HPF (0-2); SQUAMOUS EPITHELIAL CELL,UR MODERATE /LPF (FEW); WBC CLUMPS,URINE MODERATE /HPF (NEGATIVE)
[2022-07-06] MEDS ORDERED: CEPH250T PO (09:03)
== END 2022-07-06 09:10 | disposition home or self-care (01) ==
LOC: ER 08:17
DX: N39.0 Urinary tract infection, site not specified (principal); E11.9 Type 2 diabetes mellitus without complications; Z88.1 Allergy status to other antibiotic agents; Z88.8 Allergy status to other drugs, medicaments and biological substances; Z59.00 Homelessness unspecified
CPT/HCPCS: 81001; 87077; 87088; 87186; 99283

== ENCOUNTER 2022-10-06 14:03 | Emergency (ER) | payer MEDICAID ==
[~2022-10-06] VITALS: Ht 177.8 cm; Wt 108.8 kg
[2022-10-06 14:18] VITALS: BP 108/69; PULSE 96; RESP 18; TEMP 97.6; O2SAT 99
[2022-10-06 14:48] LABS: BILIRUBIN,URINE NEGATIVE (Neg); CLARITY,URINE CLOUDY (Clear); COLOR,URINE YELLOW (Yellow); GLUCOSE, URINE 250 mg/dl (Neg); KETONES,URINE NEGATIVE (Neg); LEUKOCYTE ESTERASE ,URINE SMALL (Neg); NITRITES, URINE NEGATIVE (Neg); OCCULT BLOOD,URINE NEGATIVE (Neg); PROTEIN,URINE 30 mg/dl (Neg); UA COLLECTION TYPE CLN CATCH MIDSTREAM; UROBILINOGEN,URINE 0.2 E.U/dL (0.2-1.0)
[2022-10-06 14:58] LABS: BACTERIA,URINE 4+ /HPF (Neg); MUCUS STRANDS NONE SEEN /LPF (Neg); RBC,URINE NONE SEEN /HPF (0-2); SQUAMOUS EPITHELIAL CELL,UR FEW /LPF (FEW); WBC,URINE 30-50 /HPF (0-4)
[2022-10-06] MEDS ORDERED: SULF1TAB49 PO (15:12)
[2022-10-06] MEDS ORDERED: ONDA8TAB13 PO (15:13)
[2022-10-06] MEDS ORDERED: CefTRIAXone 1000mg IM Kit (w/lidocaine diluent) IM ONE (15:15)
== END 2022-10-06 15:46 | disposition home or self-care (01) ==
LOC: ER 14:05
DX: N39.0 Urinary tract infection, site not specified (principal); E11.9 Type 2 diabetes mellitus without complications; Z88.8 Allergy status to other drugs, medicaments and biological substances; Z79.1 Long term (current) use of non-steroidal anti-inflammatories (NSAID); Z98.51 Tubal ligation status
CPT/HCPCS: 81001; 87088; 96372; 99283; J0696; 87077; 87186

== ENCOUNTER 2023-01-04 08:01 | Emergency (ER) | payer MEDICAID ==
[~2023-01-04] VITALS: Ht 172.7 cm; Wt 111.8 kg
[~2023-01-04 08:01] MED LIST changes: +ONDA8TAB13 PO
[2023-01-04 08:17] VITALS: TEMP 97.8
[2023-01-04] MEDS ORDERED: ibuprofen tablet 400 MG TABLET PO ONE (08:50)
[2023-01-04] MEDS ORDERED: HYDROcodone/acetaminophen 5mg/325mg tablet PO ONE (08:50)
[2023-01-04] MEDS ORDERED: IBUP-1984 PO (09:53)
[2023-01-04] MEDS ORDERED: HYDR-3965 PO (09:53)
[2023-01-04 10:15] VITALS: BP 106/66; PULSE 85; RESP 17; O2SAT 98
== END 2023-01-04 10:19 | disposition home or self-care (01) ==
LOC: ER 08:01
DX: S82.451A Displaced comminuted fracture of shaft of right fibula, initial encounter for closed fracture (principal); E11.9 Type 2 diabetes mellitus without complications; M19.90 Unspecified osteoarthritis, unspecified site; Z88.8 Allergy status to other drugs, medicaments and biological substances; Z79.899 Other long term (current) drug therapy; Z79.1 Long term (current) use of non-steroidal anti-inflammatories (NSAID); Z98.51 Tubal ligation status; W19.XXXA Unspecified fall, initial encounter; Y93.89 Activity, other specified; Y92.89 Other specified places as the place of occurrence of the external cause; Y99.8 Other external cause status
CPT/HCPCS: 29505; 73564; 99284; A6446; A6449

== ENCOUNTER 2023-02-18 07:05 | Emergency (ER) | payer MEDICAID ==
[~2023-02-18] VITALS: Ht 172.7 cm; Wt 119.8 kg
[2023-02-18 10:21] LABS: BILIRUBIN,URINE NEGATIVE (Neg); CLARITY,URINE CLOUDY (Clear); COLOR,URINE YELLOW (Yellow); GLUCOSE, URINE >=1000 mg/dl (Neg); KETONES,URINE NEGATIVE (Neg); LEUKOCYTE ESTERASE ,URINE MODERATE (Neg); NITRITES, URINE NEGATIVE (Neg); OCCULT BLOOD,URINE TRACE-INTACT (Neg); PH,URINE 5.5 (4.8-8.0); PROTEIN,URINE NEGATIVE (Neg); UROBILINOGEN,URINE 0.2 E.U/dL (0.2-1.0)
[2023-02-18 10:29] LABS: UA COLLECTION TYPE CLN CATCH MIDSTREAM
[2023-02-18 10:32] LABS: BACTERIA,URINE 4+ /HPF (Neg); RBC,URINE 0-2 /HPF (0-2); SQUAMOUS EPITHELIAL CELL,UR MANY /LPF (FEW); TRANSITIONAL EPI CELLS,URINE FEW /HPF; WBC,URINE TNTC /HPF (0-4)
[2023-02-18 11:16] LABS: BILIRUBIN,URINE NEGATIVE (Neg); CLARITY,URINE CLOUDY (Clear); COLOR,URINE YELLOW (Yellow); GLUCOSE, URINE >=1000 mg/dl (Neg); KETONES,URINE NEGATIVE (Neg); LEUKOCYTE ESTERASE ,URINE TRACE (Neg); NITRITES, URINE NEGATIVE (Neg); OCCULT BLOOD,URINE NEGATIVE (Neg); PH,URINE 5.5 (4.8-8.0); PROTEIN,URINE NEGATIVE (Neg); UROBILINOGEN,URINE 0.2 E.U/dL (0.2-1.0)
[2023-02-18 11:21] LABS: UA COLLECTION TYPE CLN CATCH MIDSTREAM
[2023-02-18 11:22] LABS: BACTERIA,URINE 4+ /HPF (Neg); RBC,URINE 0-2 /HPF (0-2); SQUAMOUS EPITHELIAL CELL,UR MODERATE /LPF (FEW); WBC CLUMPS,URINE FEW /HPF (NEGATIVE)
[2023-02-18 11:23] LABS: TRANSITIONAL EPI CELLS,URINE FEW /HPF
[2023-02-18] MEDS ORDERED: PHEN-786 PO (11:46)
[2023-02-18] MEDS ORDERED: NITR100C6 PO (11:46)
[2023-02-18] MEDS ORDERED: sulfamethoxazole/trimethoprim DS (800/160mg) tablet PO ONE (11:50)
[2023-02-18 12:25] VITALS: BP 97/66; PULSE 73; RESP 17; TEMP 97.7; O2SAT 99
== END 2023-02-18 12:30 | disposition home or self-care (01) ==
LOC: ER 07:05
DX: N39.0 Urinary tract infection, site not specified (principal); E11.9 Type 2 diabetes mellitus without complications; G89.29 Other chronic pain; F11.90 Opioid use, unspecified, uncomplicated; Z59.00 Homelessness unspecified; Z86.14 Personal history of Methicillin resistant Staphylococcus aureus infection; Z98.84 Bariatric surgery status; Z98.51 Tubal ligation status; Z79.899 Other long term (current) drug therapy; Z88.8 Allergy status to other drugs, medicaments and biological substances; Z87.440 Personal history of urinary (tract) infections
CPT/HCPCS: 81001; 87077; 87088; 87186; 99283

== ENCOUNTER 2023-02-25 14:39 | Emergency (ER) | payer MEDICAID ==
[~2023-02-25] VITALS: Ht 177.8 cm; Wt 127.3 kg
[~2023-02-25 14:39] MED LIST changes: +NITR100C6 PO; +PHEN-786 PO
[2023-02-25 14:53] VITALS: BP 147/87; PULSE 84; TEMP 97; O2SAT 94
[2023-02-25] MEDS ORDERED: HYDROcodone/acetaminophen 10/325mg tab PO ONE (15:50)
[2023-02-25] MEDS ORDERED: ketorolac trometh. 30mg/ml inj. IM ONE (15:50)
[2023-02-25] MEDS ORDERED: IBUP-1985 PO (15:58)
[2023-02-25] MEDS ORDERED: HYDR-3964 PO (16:02)
[2023-02-25 16:11] VITALS: RESP 16
== END 2023-02-25 16:57 | disposition home or self-care (01) ==
LOC: ER 14:39
DX: T81.33XD Disruption of traumatic injury wound repair, subsequent encounter (principal); S82.831G Other fracture of upper and lower end of right fibula, subsequent encounter for closed fracture with delayed healing; E11.9 Type 2 diabetes mellitus without complications; G89.29 Other chronic pain; M54.50 Low back pain, unspecified; M19.90 Unspecified osteoarthritis, unspecified site; Z86.14 Personal history of Methicillin resistant Staphylococcus aureus infection; Z98.51 Tubal ligation status; Z59.00 Homelessness unspecified; Z88.8 Allergy status to other drugs, medicaments and biological substances; Z79.899 Other long term (current) drug therapy; Z79.2 Long term (current) use of antibiotics; W01.0XXA Fall on same level from slipping, tripping and stumbling without subsequent striking against object, initial encounter; Y93.89 Activity, other specified; Y92.89 Other specified places as the place of occurrence of the external cause; Y99.8 Other external cause status
CPT/HCPCS: 29505; 73564; 99284; J1885; A6449

== ENCOUNTER 2023-03-01 19:48 | Emergency (ER) | payer MEDICAID ==
[~2023-03-01] VITALS: Ht 177.8 cm; Wt 120.0 kg
[~2023-03-01 19:48] MED LIST changes: +HYDR-3964 PO
[2023-03-01 20:10] VITALS: BP 147/72; PULSE 86; O2SAT 98
[2023-03-01] MEDS ORDERED: HYDROcodone/acetaminophen 5mg/325mg tablet PO ONE (23:10)
[2023-03-01 23:25] VITALS: RESP 14
[2023-03-01 23:46] VITALS: TEMP 97.1
== END 2023-03-01 23:47 | disposition home or self-care (01) ==
LOC: ER 19:49
DX: Z04.89 Encounter for examination and observation for other specified reasons (principal); E11.9 Type 2 diabetes mellitus without complications; F41.9 Anxiety disorder, unspecified; F32.A Depression, unspecified; Z59.00 Homelessness unspecified
CPT/HCPCS: 99283

== ENCOUNTER 2023-04-01 16:20 | Emergency (ER) | payer MEDICAID ==
[~2023-04-01] VITALS: Ht 177.8 cm; Wt 95.5 kg
[~2023-04-01 16:20] MED LIST changes: -HYDR-3964 PO
[2023-04-01 16:29] VITALS: BP 155/87; PULSE 98; RESP 20; TEMP 97.3; O2SAT 100
[2023-04-01 17:25] LABS: BILIRUBIN,URINE NEGATIVE (Neg); CLARITY,URINE CLOUDY (Clear); COLOR,URINE YELLOW (Yellow); GLUCOSE, URINE 500 mg/dl (Neg); KETONES,URINE NEGATIVE (Neg); LEUKOCYTE ESTERASE ,URINE SMALL (Neg); NITRITES, URINE POSITIVE (Neg); OCCULT BLOOD,URINE NEGATIVE (Neg); PROTEIN,URINE NEGATIVE (Neg); UROBILINOGEN,URINE 0.2 E.U/dL (0.2-1.0)
[2023-04-01 17:27] LABS: UA COLLECTION TYPE CLN CATCH MIDSTREAM
[2023-04-01 17:29] LABS: BASOPHILS # (AUTO) 0.1 X10'3 (0-0.2); BASOPHILS % (AUTO) 0.9 % (0-1); EOSINOPHILS # (AUTO) 0.1 X10'3 (0-0.9); EOSINOPHILS % (AUTO) 0.8 % (0-6); HEMATOCRIT 31.2 % (35.0-45.0); HEMOGLOBIN 9.4 g/dl (12.0-16.0); LYMPHOCYTES # (AUTO) 1.9 X10'3 (1.1-4.8); LYMPHOCYTES % (AUTO) 19.3 % (21-51); MEAN CORPUSCULAR HGB CONC 30.1 g/dL (33.0-36.5); MEAN CORPUSCULAR VOLUME 66.3 FL (78-98); MONOCYTES # (AUTO) 0.5 X10'3 (0-0.9); MONOCYTES % (AUTO) 5.4 % (2-12); NEUTROPHILS # (AUTO) 7.1 X10'3 (1.8-7.7); NEUTROPHILS % (AUTO) 73.6 % (42-75); PLATELET COUNT 264 X10'3 (140-440); RED CELL DISTRIBUTION WIDTH 19.1 % (11.5-14.5); WHITE BLOOD COUNT 9.7 X10'3 (4.5-11.0)
[2023-04-01 17:29] LABS: BACTERIA,URINE 4+ /HPF (Neg); MUCUS STRANDS NONE SEEN /LPF (Neg); RBC,URINE 0-2 /HPF (0-2); SQUAMOUS EPITHELIAL CELL,UR MODERATE /LPF (FEW); WBC CLUMPS,URINE FEW /HPF (NEGATIVE)
[2023-04-01 17:30] LABS: ALBUMIN 3.2 G/DL (3.4-5.0); ANION GAP 8 (8-16); BLOOD UREA NITROGEN 14 MG/DL (7-18); CALCIUM 8.6 MG/DL (8.5-10.1); CHLORIDE 103 MMOL/L (99-107); CREATININE 1.17 MG/DL (0.40-0.90); GLUCOSE 102 MG/DL (70-104); LIPASE 69 U/L (16-77); POTASSIUM 3.9 MMOL/L (3.5-5.1); SODIUM 138 MMOL/L (135-145); TOTAL CARBON DIOXIDE 26.8 MMOL/L (24-32); eCRCL 62 ML/MIN; eGFR 49 ML/MIN
[2023-04-01 17:56] LABS: ANISOCYTOSIS 2+; MICROCYTOSIS 2+; PLATELET ESTIMATE NORMAL
[2023-04-01 17:57] LABS: ACANTHOCYTES FEW; BURR CELLS 2+; ELLIPTOCYTES FEW; SCHISTOCYTES FEW
[2023-04-01 17:58] LABS: POIKILOCYTOSIS 2+; POLYCHROMASIA FEW
[2023-04-01 17:59] LABS: LARGE PLATELETS FEW
[2023-04-01] MEDS ORDERED: CEPH-585 PO (18:13)
[2023-04-01] MEDS: CefTRIAXone 1000mg IM Kit (w/lidocaine diluent) IM ONE (18:31)
== END 2023-04-01 18:48 | disposition home or self-care (01) ==
LOC: ER 16:21
DX: N39.0 Urinary tract infection, site not specified (principal); E11.9 Type 2 diabetes mellitus without complications; G89.29 Other chronic pain; M54.9 Dorsalgia, unspecified; F41.9 Anxiety disorder, unspecified; Z88.8 Allergy status to other drugs, medicaments and biological substances; Z88.1 Allergy status to other antibiotic agents; Z79.899 Other long term (current) drug therapy
CPT/HCPCS: 36415; 80048; 81001; 83690; 85008; 85025; 87088; 96372; 99283; J0696; 87077; 87186

== ENCOUNTER 2023-06-10 21:41 | Emergency (ER) | payer MEDICAID ==
[~2023-06-10] VITALS: Ht 172.7 cm; Wt 122.0 kg
[~2023-06-10 21:41] MED LIST changes: +CEPH-585 PO
[2023-06-10 21:51] VITALS: BP 167/117; PULSE 83; RESP 16; TEMP 98.3; O2SAT 99
== END 2023-06-11 00:04 | disposition left against medical advice (07) ==
LOC: ER 21:42
DX: F41.9 Anxiety disorder, unspecified (principal); Z53.21 Procedure and treatment not carried out due to patient leaving prior to being seen by health care provider
CPT/HCPCS: 99281

== ENCOUNTER 2023-06-27 00:51 | Emergency (ER) | payer MEDICAID ==
[~2023-06-27] VITALS: Ht 172.7 cm; Wt 121.2 kg
[2023-06-27 00:56] VITALS: TEMP 97.8
[2023-06-27 01:07] VITALS: BP 110/73; PULSE 83; RESP 16; O2SAT 98
[2023-06-27 01:29] LABS: BILIRUBIN,URINE NEGATIVE (Neg); CLARITY,URINE CLOUDY (Clear); COLOR,URINE YELLOW (Yellow); GLUCOSE, URINE 100 mg/dl (Neg); KETONES,URINE NEGATIVE (Neg); LEUKOCYTE ESTERASE ,URINE SMALL (Neg); NITRITES, URINE NEGATIVE (Neg); OCCULT BLOOD,URINE MODERATE (Neg); PROTEIN,URINE NEGATIVE (Neg); URINE HCG NEGATIVE (NEG); UROBILINOGEN,URINE 0.2 E.U/dL (0.2-1.0)
[2023-06-27 01:32] LABS: UA COLLECTION TYPE CLN CATCH MIDSTREAM
[2023-06-27] MEDS ORDERED: CEPH-585 PO (01:43)
[2023-06-27 01:44] LABS: WBC,URINE 30-50 /HPF (0-4)
[2023-06-27 01:45] LABS: BACTERIA,URINE 4+ /HPF (Neg); MUCUS STRANDS FEW /LPF (Neg); RENAL CELLS, URINE FEW /HPF; SQUAMOUS EPITHELIAL CELL,UR FEW /LPF (FEW); TRANSITIONAL EPI CELLS,URINE FEW /HPF
[2023-06-27] MEDS: CefTRIAXone 1000mg IM Kit (w/lidocaine diluent) IM ONE (01:48)
== END 2023-06-27 01:55 | disposition home or self-care (01) ==
LOC: ER 00:52
DX: N39.0 Urinary tract infection, site not specified (principal); R30.9 Painful micturition, unspecified; M54.50 Low back pain, unspecified; R53.83 Other fatigue; E11.9 Type 2 diabetes mellitus without complications; Z88.1 Allergy status to other antibiotic agents; Z91.048 Other nonmedicinal substance allergy status; Z88.8 Allergy status to other drugs, medicaments and biological substances
CPT/HCPCS: 81001; 81025; 87088; 96372; 99284; J0696; 87077; 87186

== ENCOUNTER 2023-11-08 13:42 | Emergency (ER) | payer MEDICAID ==
[~2023-11-08] VITALS: Ht 172.7 cm; Wt 120.8 kg
[~2023-11-08 13:42] MED LIST changes: +ONDA-245 PO; -ONDA8TAB13 PO
[2023-11-08 13:46] VITALS: BP 164/91; PULSE 93; RESP 23; TEMP 98.2; O2SAT 96
[2023-11-08 14:03] LABS: BILIRUBIN,URINE NEGATIVE (Neg); CLARITY,URINE CLOUDY (Clear); COLOR,URINE YELLOW (Yellow); GLUCOSE, URINE 500 mg/dl (Neg); KETONES,URINE NEGATIVE (Neg); LEUKOCYTE ESTERASE ,URINE NEGATIVE (Neg); NITRITES, URINE NEGATIVE (Neg); OCCULT BLOOD,URINE NEGATIVE (Neg); PROTEIN,URINE 30 mg/dl (Neg)
[2023-11-08 14:04] LABS: URINE HCG NEGATIVE (NEG)
[2023-11-08 14:08] LABS: UA COLLECTION TYPE CLN CATCH MIDSTREAM
[2023-11-08 14:11] LABS: BACTERIA,URINE 4+ /HPF (Neg); SQUAMOUS EPITHELIAL CELL,UR MANY /LPF (FEW)
[2023-11-08 14:12] LABS: WBC,URINE 50-100 /HPF (0-4)
[2023-11-08] MEDS ORDERED: TIRZ15PE SQ (15:38)
[2023-11-08] MEDS ORDERED: OLAN10TA73 PO (15:38)
[2023-11-08] MEDS ORDERED: GABA600T13 PO (15:38)
[2023-11-08] MEDS ORDERED: QUET200T31 PO (15:38)
[2023-11-08] MEDS ORDERED: ARIP400S3 (15:38)
[2023-11-08] MEDS ORDERED: INSU100I39 SQ (15:38)
[2023-11-08] MEDS ORDERED: INSU100I31 SQ (15:38)
== END 2023-11-08 15:53 | disposition home or self-care (01) ==
LOC: ER 13:43
DX: R35.0 Frequency of micturition (principal); E11.9 Type 2 diabetes mellitus without complications; M19.90 Unspecified osteoarthritis, unspecified site; G89.29 Other chronic pain; M54.9 Dorsalgia, unspecified; F41.9 Anxiety disorder, unspecified; F32.A Depression, unspecified; F11.90 Opioid use, unspecified, uncomplicated; Z88.8 Allergy status to other drugs, medicaments and biological substances; Z79.899 Other long term (current) drug therapy; Z79.2 Long term (current) use of antibiotics; Z79.1 Long term (current) use of non-steroidal anti-inflammatories (NSAID); Z98.51 Tubal ligation status; Z59.00 Homelessness unspecified
CPT/HCPCS: 81001; 81025; 82948; 99284

== ENCOUNTER 2024-02-04 11:07 | Emergency (ER) | payer MEDICAID ==
[~2024-02-04] VITALS: Ht 172.7 cm; Wt 92.8 kg
[~2024-02-04 11:07] MED LIST changes: -ALBU18HF2 INH; -ARIP30TA7 PO; +ARIP400S3; -BUPR150T8 PO; -CEPH-585 PO; -CLON-529 PO; -DOXE150C PO; -FLUC150T46 PO; +GABA-1405 PO; -HYDR50TA65 PO; -IBUP-1985 PO; +INSU100I31 SQ; +INSU100I39 SQ; -LIDO700A32 TOP; -NITR100C6 PO; +OLAN10TA73 PO; -ONDA-245 PO; -PANT40TA54 PO; -PHEN-786 PO; -PHEN-824 PO; +QUET200T31 PO; -TEMA15CA PO; +TIRZ15PE SQ
[2024-02-04 11:24] VITALS: BP 172/95; PULSE 82; RESP 18; O2SAT 98
[2024-02-04 11:48] LABS: BILIRUBIN,URINE NEGATIVE (Neg); CLARITY,URINE CLOUDY (Clear); COLOR,URINE YELLOW (Yellow); GLUCOSE, URINE >=1000 mg/dl (Neg); KETONES,URINE NEGATIVE (Neg); LEUKOCYTE ESTERASE ,URINE TRACE (Neg); NITRITES, URINE NEGATIVE (Neg); OCCULT BLOOD,URINE LARGE (Neg); PROTEIN,URINE 30 mg/dl (Neg); UROBILINOGEN,URINE 0.2 E.U/dL (0.2-1.0)
[2024-02-04 11:53] LABS: UA COLLECTION TYPE CLN CATCH MIDSTREAM
[2024-02-04 11:54] LABS: RBC,URINE TNTC /HPF (0-2); SQUAMOUS EPITHELIAL CELL,UR FEW /LPF (FEW); WBC,URINE 20-30 /HPF (0-4)
[2024-02-04 11:55] LABS: BACTERIA,URINE 4+ /HPF (Neg)
[2024-02-04] MEDS ORDERED: DIF150T PO (12:51)
[2024-02-04] MEDS ORDERED: CEPH-585 PO (12:51)
[2024-02-04 13:12] VITALS: TEMP 97.4
== END 2024-02-04 13:14 | disposition home or self-care (01) ==
LOC: ER 11:08
DX: N39.0 Urinary tract infection, site not specified (principal); N76.0 Acute vaginitis; E11.9 Type 2 diabetes mellitus without complications; M19.90 Unspecified osteoarthritis, unspecified site; G89.29 Other chronic pain; M54.9 Dorsalgia, unspecified; F41.9 Anxiety disorder, unspecified; F32.A Depression, unspecified; F11.90 Opioid use, unspecified, uncomplicated; Z59.00 Homelessness unspecified; Z79.84 Long term (current) use of oral hypoglycemic drugs; Z79.899 Other long term (current) drug therapy; Z88.8 Allergy status to other drugs, medicaments and biological substances; Z98.51 Tubal ligation status
CPT/HCPCS: 81001; 87077; 87088; 87186; 99283

== ENCOUNTER 2025-01-31 17:23 | Emergency (ER) | payer MEDICAID ==
[~2025-01-31] VITALS: Ht 172.7 cm; Wt 116.0 kg
[2025-01-31 17:38] VITALS: BP 128/93; PULSE 106; RESP 20; TEMP 96.3; O2SAT 98
[2025-01-31] MEDS ORDERED: QUET400T PO (18:00)
--- NOTE | 2025-01-31 18:01 | Physician Documentation ---
HPI ~ General Chief Complaint: Medication Request Stated Complaint: PANIC ATTACK Time Seen by MD: 17:48 OK to notify your PCP?: Yes Primary Medical Doctor: DR. LUPE KRAUS Source: patient Mode of Arrival: POV Exam Limitations: no limitations History of Present Illness HPI Comments 54-year-old female who is here stating that she has had anxiety since running out of her Seroquel. She has been out of her Seroquel for four days. She states that she has been without insurance but she finally got on covered [place] and this will be starting February 12 for her. She did find a good Rx coupon so that she will be able to get the Seroquel filled now and she states she will be able to afford to pay for this with the good Rx coupon. She states since she has not she has not slept very anxious. She is hoping she can get a dosage of the Seroquel here. Her usual Seroquel dosage is 400 mg q.h.s. No depression, SI or HI. Medication Reconciliation Allergies: Coded Allergies: lithium (Verified Allergy, Severe, hallucinations, 11/08/23) divalproex sodium (Verified Allergy, Unknown, hallucinations, 11/08/23) duloxetine (Verified Allergy, Unknown, 11/08/23) empagliflozin (Verified Allergy, Unknown, 11/08/23) Scheduled Gabapentin (Gabapentin), 1 TAB PO TID, (Reported) Metformin Hcl* (Glucophage*), 1 TAB PO Q12H, (Reported) Olanzapine (Olanzapine), 1-2 TAB PO HS, (Reported) Quetiapine Fumarate (Quetiapine Fumarate), 1 TAB PO HS, (Reported) Tirzepatide (Mounjaro), 15 MG SQ Q7D, (Reported) Miscellaneous Medications Aripiprazole (Abilifkamaljit Maintena), (Reported) Insulin Glargine,Hum.rec.anlog (Basaglar Kwikpen U-100), SQ, (Reported) Insulin Lispro (Admelog Solostar), SQ, (Reported) Past Medical History Past Medical History: *PULMONARY*, UTI, Diabetes, Arthritis, Chronic Pain, Chronic Back Pain, MRSA Abscess, Anxiety, Depression Past Surgical History: gastric bypass, tubal ligation Patient History: FH: diabetes mellitus MOTHER, Onset:30's - 40 FHx: alcohol abuse FATHER, Onset:15's - 20 FHx: hypertension FATHER, Onset:Unknown Alcohol Use: None Drug Use: none Lives with: Family Lives In: Homeless Occupation: employed Past Social History: Heroin use Review of Systems All Other Systems at this time: Reviewed and Negative Physical Exam Physical Exam Vital Signs: Temperature: 96.3, Source: Temporal, Heart Rate: 106, Respiratory Rate: 20, BP: 128/93, Pulse Oximetry: 98, Weight: 116.000 Oxygen Flow Rate: 0 Physical Exam General Appearance: Alert, WD/WN. NAD. HEENT: NCAT, PERRL, EOMI. Neck: Supple, trachea midline. Cardiovascular: RRR. No m/r/g. Lungs: CTAB. Breathing unlabored Extremities: Normal inspection. No edema. Skin: Warm/dry, normal color Neurological: Alert and oriented x4, normal gait. Psychiatric: Affect congruent with mood. Progress Results/Orders Results/Orders Orders - ISHAAN PUGH Quetiapine Fumarate Tablet (Seroquel) (01/31/25 21:00) Vital Signs 01/31/25 17:38 Temp 96.3 Pulse 106 Resp 20 B/P (MAP) 128/93 Pulse Ox 98 O2 Flow Rate 0 Medical Decision Making Additional information obtaine: N/A Findings n/a Differential Dx:Considerations: Include: Adverse circumstances, Economic, Psychosocial, Medical services unavail., Medication refill, Medication non- compliance Departure Time of Disposition: 17:59 Disposition: 01 HOME / SELF CARE / HOMELESS Impression: Primary Impression: Anxiety Additional Impression: Medication refill Discharge Instructions: Medicine Refill at the Emergency Department Additional Instructions: I sent a prescription for Seroquel for you to your pharmacy Since we gave you Seroquel here in the ER you will not take her Seroquel dosage tonight and will resume tomorrow Referrals: NO PRIMARY CARE PROVIDER (PCP) Prescriptions Quetiapine Fumarate (Seroquel) 400 Mg Tablet 1 TAB PO HS for 30 Days, #30 TAB 0 Refills Prov: ISHAAN PUGH 01/31/25 Education Educated: Patient Educated regarding: diagnosis, treatment, need for follow up Signature Scribe Signature: x Attestation: ISHAAN Chao Jan 31, 2025 18:01
== END 2025-01-31 18:13 | disposition home or self-care (01) ==
LOC: ER 17:23
DX: F41.9 Anxiety disorder, unspecified (principal); F32.A Depression, unspecified; E11.9 Type 2 diabetes mellitus without complications; F11.90 Opioid use, unspecified, uncomplicated; G89.29 Other chronic pain; M19.90 Unspecified osteoarthritis, unspecified site; Z79.899 Other long term (current) drug therapy; Z86.14 Personal history of Methicillin resistant Staphylococcus aureus infection; Z87.440 Personal history of urinary (tract) infections; Z88.8 Allergy status to other drugs, medicaments and biological substances; Z98.51 Tubal ligation status; Z79.84 Long term (current) use of oral hypoglycemic drugs; Z59.00 Homelessness unspecified; Z76.0 Encounter for issue of repeat prescription
CPT/HCPCS: 99283